=== PATIENT | female | born 1935 | race Caucasian/White ===

== ENCOUNTER → 2020-04-18 13:02 | Outpatient (BNVA) | payer MEDICARE, OTHER, SELFPAY | PROVIDERS: Visit Provider Nurse Practitioner Family | DX: Z20.828 Contact with and (suspected) exposure to other viral communicable diseases (principal) | CPT/HCPCS: 87635 ==

== ENCOUNTER → 2022-12-11 10:20 | Outpatient (BNVA) | payer MEDICARE, OTHER, SELFPAY | PROVIDERS: Referring Provider Nurse Practitioner Family; Visit Provider Podiatrist Foot & Ankle Surgery | DX: I73.9 Peripheral vascular disease, unspecified (principal); B35.1 Tinea unguium; L84 Corns and callosities; L90.9 Atrophic disorder of skin, unspecified; G62.9 Polyneuropathy, unspecified; M20.41 Other hammer toe(s) (acquired), right foot; M20.42 Other hammer toe(s) (acquired), left foot; E11.42 Type 2 diabetes mellitus with diabetic polyneuropathy; Z79.4 Long term (current) use of insulin | CPT/HCPCS: 11056; 11721; 99203 ==

== ENCOUNTER → 2023-02-26 10:40 | Outpatient (BNVA) | payer MEDICARE, OTHER, SELFPAY | PROVIDERS: Visit Provider Podiatrist Foot & Ankle Surgery | DX: B35.1 Tinea unguium (principal); L90.9 Atrophic disorder of skin, unspecified; I73.9 Peripheral vascular disease, unspecified; G62.9 Polyneuropathy, unspecified; M20.41 Other hammer toe(s) (acquired), right foot; M20.42 Other hammer toe(s) (acquired), left foot; L84 Corns and callosities; E11.42 Type 2 diabetes mellitus with diabetic polyneuropathy; Z79.4 Long term (current) use of insulin | CPT/HCPCS: 11056; 11721 ==

== ENCOUNTER → 2023-05-28 14:02 | Outpatient (BNVA) | payer MEDICARE, OTHER, SELFPAY | PROVIDERS: PCP Nurse Practitioner Family; Visit Provider Podiatrist Foot & Ankle Surgery | DX: B35.1 Tinea unguium (principal); L90.9 Atrophic disorder of skin, unspecified; I73.9 Peripheral vascular disease, unspecified; G62.9 Polyneuropathy, unspecified; M20.41 Other hammer toe(s) (acquired), right foot; M20.42 Other hammer toe(s) (acquired), left foot; L84 Corns and callosities; E11.42 Type 2 diabetes mellitus with diabetic polyneuropathy | CPT/HCPCS: 11721 ==

== ENCOUNTER → 2023-08-14 13:02 | Outpatient (BNVA) | payer MEDICARE, OTHER, SELFPAY | PROVIDERS: PCP Nurse Practitioner Family; Visit Provider Podiatrist Foot & Ankle Surgery | DX: M25.371 Other instability, right ankle (principal); E11.42 Type 2 diabetes mellitus with diabetic polyneuropathy; B35.1 Tinea unguium; L84 Corns and callosities; L90.9 Atrophic disorder of skin, unspecified; I73.9 Peripheral vascular disease, unspecified; G62.9 Polyneuropathy, unspecified; M20.41 Other hammer toe(s) (acquired), right foot; M20.42 Other hammer toe(s) (acquired), left foot; Z79.4 Long term (current) use of insulin | CPT/HCPCS: 11056; 11721; 73610; 99213 ==

== ENCOUNTER → 2023-10-16 11:08 | Outpatient (BNVA) | payer MEDICARE, OTHER, SELFPAY | PROVIDERS: PCP Nurse Practitioner Family; Visit Provider Podiatrist Foot & Ankle Surgery | DX: B35.1 Tinea unguium (principal); I73.9 Peripheral vascular disease, unspecified; G62.9 Polyneuropathy, unspecified; L84 Corns and callosities; E11.42 Type 2 diabetes mellitus with diabetic polyneuropathy; Z79.4 Long term (current) use of insulin | CPT/HCPCS: 11056; 11721 ==

== ENCOUNTER → 2024-01-08 10:10 | Outpatient (BNVA) | payer MEDICARE, OTHER, SELFPAY | PROVIDERS: PCP Nurse Practitioner Family; Visit Provider Podiatrist Foot & Ankle Surgery | DX: B35.1 Tinea unguium (principal); I73.9 Peripheral vascular disease, unspecified; G62.9 Polyneuropathy, unspecified; L84 Corns and callosities; E11.42 Type 2 diabetes mellitus with diabetic polyneuropathy | CPT/HCPCS: 11056; 11721 ==

== ENCOUNTER 2024-05-27 22:51 | Inpatient (IN) | payer MEDICARE, OTHER, MEDICAID, SELFPAY ==
[2024-05-27 22:55] VITALS: BP 123/67; PULSE 73; RESP 20; TEMP 36.9; O2SAT 98
--- NOTE | 2024-05-27 22:59 | XRR_ITS ---
PROCEDURE INFORMATION: Exam: XR Chest Exam date and time: 05/27/2024 11:01 PM Age: 88 years old Clinical indication: Shortness of breath; Prior surgery; Surgery date: 6+ months; Surgery type: Pacer; Additional info: Dyspnea, wheezing TECHNIQUE: Imaging protocol: Radiologic exam of the chest. Views: 1 view. COMPARISON: CR XR shoulder RT min 2V* [id number] 08/21/2018 5:53 PM FINDINGS: Tubes, catheters and devices: Left subclavian pacer with right atrial appendage and right ventricular leads. Lungs: Central pulmonary vascular congestion. Mild interstitial prominence. Patchy bibasilar opacities. Pleural spaces: Unremarkable. No pleural effusion. No pneumothorax. Heart/Mediastinum: Cardiomegaly. Vasculature: Atherosclerotic aortic calcifications. Bones/joints: Unremarkable. XR/XR chest 1V portable [id number] IMPRESSION: 1. Cardiomegaly with central pulmonary vascular congestion. Mild interstitial prominence may reflect mild pulmonary edema. 2. Mild bibasilar opacities could represent atelectasis versus infiltrate.
--- NOTE | 2024-05-27 23:00 | W.ED.SOB ---
HPI - SOB/Dyspnea General: Chief Complaint: Shortness of Breath/Dyspnea Stated Complaint: sob Time Seen by Provider: 05/27/24 22:58 History of Present Illness: HPI Narrative: Patient arrived to the ER via EMS from [facility]. EMS reports that son was concerned that the patient was not being taken care of and wanted her evaluated. Patient has no complaints at this time. She is alert and oriented x 3. Patient does have CHF, COPD oxygen dependent at 2 L per nasal cannula, A-fib, on warfarin, diltiazem, flecainide, furosemide, insulin-dependent diabetic, patient denies any complaints at this time. Related Data Home Medications ?Medication ?Instructions ?Recorded ?Confirmed amlodipine 5 mg tablet 5 mg PO DAILY 04/18/20 05/28/24 cholecalciferol (vitamin D3) 50 50 mcg PO DAILY 04/18/20 05/28/24 mcg (2,000 unit) capsule diltiazem HCl 120 mg 120 mg PO DAILY 04/18/20 05/28/24 capsule,extended release 24 hr epinephrine 0.3 mg/0.3 mL 0.3 mg IM Q10M PRN Allergic 04/18/20 05/28/24 injection, auto-injector Reaction furosemide 20 mg tablet 10 mg PO QAM 04/18/20 05/28/24 hydrocodone 7.5 mg-acetaminophen 1 tab PO Q6H PRN pain 04/18/20 05/28/24 325 mg tablet warfarin 2.5 mg tablet 2.5 mg PO DAILY 04/18/20 05/28/24 flecainide 100 mg tablet 100 mg PO BID 05/28/24 05/28/24 gabapentin 100 mg capsule 100 mg PO QID 05/28/24 05/28/24 linagliptin 5 mg tablet (Tradjenta) 5 mg PO DAILY 05/28/24 05/28/24 metoprolol succinate 100 mg 100 mg PO DAILY 05/28/24 05/28/24 tablet,extended release 24 hr omeprazole 20 mg capsule,delayed 20 mg PO BID 05/28/24 05/28/24 release Allergies Allergy/AdvReac Type Severity Reaction Status Date / Time Iodinated Contrast Media Allergy Severe hives Verified 05/27/24 23:00 Penicillins Allergy Severe anaphylaxis Verified 05/27/24 23:00 tolmetin (From Tolectin) Allergy Severe anaphylaxis Verified 05/27/24 23:00 acetaminophen (From Allergy Intermediate itching Verified 05/27/24 23:00 Darvocet-N) alendronate sodium (From Allergy Intermediate heartburn Verified 05/27/24 23:00 Fosamax) antioxidant multivitamin Allergy Intermediate n/v/d Verified 05/27/24 23:00 no.10 (From I-Caps) clonidine (From Catapres) Allergy Intermediate dizziness Verified 05/27/24 23:00 docosahexaenoic acid (From Allergy Intermediate n/v/d Verified 05/27/24 23:00 I-Caps) eicosapentaenoic acid (From Allergy Intermediate n/v/d Verified 05/27/24 23:00 I-Caps) lisinopril Allergy Intermediate rash Verified 05/27/24 23:00 lutein (From I-Caps) Allergy Intermediate n/v/d Verified 05/27/24 23:00 metformin (From Glucophage) Allergy Intermediate n/v/d Verified 05/27/24 23:00 morphine Allergy Intermediate rash Verified 05/27/24 23:00 omega-3 fatty acids (From Allergy Intermediate n/v/d Verified 05/27/24 23:00 I-Caps) propoxyphene (From Allergy Intermediate itching Verified 05/27/24 23:00 Darvocet-N) zeaxanthin (From I-Caps) Allergy Intermediate n/v/d Verified 05/27/24 23:00 NSAIDS (Non-Steroidal Allergy anaphylaxis Verified 05/27/24 23:00 Anti-Inflamma Review of Systems General: Reports: 10 or more systems reviewed and unremarkable except in HPI and below PFSH ED PFSH: Medical History Pacemaker Diabetes CHF (congestive heart failure) A-fib Status post ablation March 2024 at [facility], status post pacemaker PAD (peripheral artery disease) Right ankle instability Social History Smoking and tobacco/nicotine status: never used tobacco/nicotine Alcohol intake: never Substance/Drug Use: never Physical Exam Const: COMMON NORMALS: no acute distress, average body habitus, patient oriented x3, no limitations, healthy appearing, alert and well nourished HENMT: COMMON NORMALS: normocephalic, atraumatic, hearing grossly normal bilaterally, external ears normal, Normal external nose present, moist oral mucous membranes and oropharynx normal HEAD & SCALP: normocephalic and atraumatic NOSE: Normal external nose present EXTERNAL EAR: Yes external ears normal Eye: COMMON NORMALS: Equal, round and reactive pupils present, EOMs intact bilaterally, conjunctivae normal and no scleral icterus CONJUNCTIVA: Yes conjunctivae normal PUPIL: Yes Equal, round and reactive pupils present Neck/C-Spine: COMMON NORMALS: no JVD Chest: COMMONS NORMALS: normal inspection of the chest and normal palpation of entire chest wall Resp: COMMON NORMALS: normal respiratory effort, No retractions and No use of accessory muscles; negative for clear to auscultation bilaterally (Decreased breath sounds bilaterally occasional expiratory wheeze) AUSCULTATION: not clear to auscultation bilaterally (Decreased breath sounds bilaterally occasional expiratory wheeze) Cardio: COMMON NORMALS: no JVD, regular rate, regular rhythm, S1 normal heart sound present, S2 normal heart sound present, No gallops present (Cardio), No clicks present (Cardio) and No murmurs present (Cardio) RATE: regular rate RHYTHM: regular rhythm HEART SOUNDS: S1 normal heart sound present and S2 normal heart sound present GI: COMMON NORMALS: Normal to inspection, nondistended, normoactive bowel sounds present, Soft to palpation, non-tender, No hepatosplenomegaly present and no masses PALPATION: Yes Soft to palpation and Yes No hepatosplenomegaly present Extremity: NARRATIVE EXTREMITY EXAM: 1+ pitting edema pretibial bilaterally lower extremities Neuro: COMMON NORMALS: patient oriented x3 SENSORIUM/ORIENTATION: Yes alert Course Vital Signs: Vital signs: Vital Signs Temperature 97.6 F 05/28/24 19:30 Pulse Rate 69 05/28/24 19:30 Respiratory Rate 16 05/28/24 19:30 Blood Pressure 91/56 05/28/24 19:30 Pulse Oximetry 96 05/28/24 19:30 Oxygen Delivery Me thod Nasal Cannula 05/28/24 19:30 Oxygen Flow Rate 2 05/28/24 19:30 MDM - SOB/Dyspnea Medical Decision Making I have no previous records on the patient. Patient's chest x-ray showed pulmonary vascular congestion which may reflect pulmonary edema atelectasis versus infiltrate, patient's white count was 12.0, INR 6.79, potassium 5.3, BUN/creatinine 42/2.7, lactic acid 2.5, AST 451, ALT 294, alkaline phosphatase 118, total bilirubin 1.1, proBNP 36,000, CT of the chest abdomen pelvis showed bilateral pulmonary effusions cardiomegaly and soft tissue edema is, all these results was discussed with Dr. Mandujano who will place the patient inpatient for further evaluation treatment. Medical Records I reviewed the patient's medical records. Lab Data I reviewed the patient's lab results. 05/28/24 12:14 05/28/24 14:33 Labs/Radiology: Radiology Impressions Chest X-Ray 05/27/24 22:59 IMPRESSION: 1. Cardiomegaly with central pulmonary vascular congestion. Mild interstitial prominence may reflect mild pulmonary edema. 2. Mild bibasilar opacities could represent atelectasis versus infiltrate. Chest/Abdomen/Pelvis CT 05/28/24 00:09 IMPRESSION: Cardiomegaly. Moderate right and small left effusion. IMPRESSION: Cardiomegaly. Effusions and soft tissue edema, suggesting some degree of cardiac failure. Additional chronic findings as above. COMMENTS: Consistent with the [employer]'s Incidental Findings Committee white paper (J Am Christopher Radiol 2017): For any incidental adrenal lesion greater than or equal to 1 cm but less than or equal to 4 cm classified in this report as benign, likely benign, or containing fat (including classification as an adenoma or myelolipoma), no follow-up imaging is recommended per consensus recommendations based on imaging criteria. Further lab evaluation could be pursued if warranted based on clinical findings. Head CT 05/28/24 01:13 IMPRESSION: Advanced chronic ischemic change and atrophy. No acute intracranial abnormality. Laboratory Results WBC 12.01 10^3/uL (3.29-11.43) H 05/27/24 23:14 RBC 4.54 10^6/uL (3.85-5.65) 05/27/24 23:14 Hgb 12.30 g/dL (11.27-16.99) 05/27/24 23:14 Hct 39.8 % (36-47) 05/27/24 23:14 MCV 87.7 fl (85-98) 05/27/24 23:14 MCH 27.1 pg (27-33) 05/27/24 23:14 MCHC 30.9 g/dL (30-55) 05/27/24 23:14 RDW 18.6 % (12.1-15.1) H 05/27/24 23:14 Plt Count 284 10^3/cmm (157-399) 05/27/24 23:14 MPV 9.7 fL (7.4-10.4) 05/27/24 23:14 Neut % (Auto) 84.3 % 05/27/24 23:14 Lymph % (Auto) 7.0 % 05/27/24 23:14 [place] % (Auto) 7.8 % 05/27/24 23:14 Eos % (Auto) 0.1 % 05/27/24 23:14 Baso % (Auto) 0.2 % 05/27/24 23:14 Neut # (Auto) 10.12 10^3/uL (1.8-7.7) H 05/27/24 23:14 Lymph # (Auto) 0.8 10^3/uL (0.8-4.8) 05/27/24 23:14 [place] # (Auto) 0.9 10^3/uL (0.2-0.9) 05/27/24 23:14 Eos # (Auto) 0.0 10^3/uL (0.0-0.8) 05/27/24 23:14 Baso # (Auto) 0.0 10^3/uL (0.0-0.1) 05/27/24 23:14 Nucleated RBC % (auto) 0 % 05/27/24 23:14 Nucleated RBCs # 0.0 /100WBC 05/27/24 23:14 PT 62.10 SECONDS (12.1-14.9) H 05/27/24 23:14 INR 6.79 (0.8-1.2) H* 05/27/24 23:14 Sodium 134 mmol/L (136-145) L 05/27/24 23:14 Potassium 5.3 mmol/L (3.5-5.1) H 05/27/24 23:14 Chloride 96 mmol/L (98-107) L 05/27/24 23:14 Carbon Dioxide 22 mmol/L (22-29) 05/27/24 23:14 Anion Gap 21.3 (5-19) H 05/27/24 23:14 BUN 42 mg/dL (8-23) H 05/27/24 23:14 Creatinine 2.7 mg/dL (0.5-0.9) H 05/27/24 23:14 GFR Calculation Not Reportable 05/27/24 23:14 Glucose 220 mg/dL (65-115) H 05/27/24 23:14 Calculated Osmolality 295 mOsm/kg (285-295) 05/27/24 23:14 Lactic Acid 2.5 mmol/L (0.5-2.2) H 05/27/24 23:14 Calcium 8.8 mg/dL (8.5-10.5) 05/27/24 23:14 Magnesium 2.3 mg/dL (1.7-2.3) 05/27/24 23:14 Total Bilirubin 1.1 mg/dL (0.15-1.2) 05/27/24 23:14 AST 451 U/L (0-32) H 05/27/24 23:14 ALT 294 U/L (0-33) H 05/27/24 23:14 Alkaline Phosphatase 118 U/L (35-105) H 05/27/24 23:14 NT-Pro-B Natriuret Pep 46575 pg/mL (0-450) H 05/27/24 23:14 Total Protein 7.1 g/dL (6.6-8.7) 05/27/24 23:14 Albumin 3.5 g/dL (3.5-5.2) 05/27/24 23:14 Globulin 3.6 g/dL (1.3-4.6) 05/27/24 23:14 Procalcitonin 0.20 ng/mL (0-0.5) 05/27/24 23:14 Urine Color Dark yellow (Yellow) A 05/28/24 00:38 Urine Appearance Clear (CLEAR) 05/28/24 00:38 Urine pH 5.0 (5-7) 05/28/24 00:38 Ur Specific [place] 1.020 (1.005-1.030) 05/28/24 00:38 Urine Protein 2+ (Negative) A 05/28/24 00:38 Urine Glucose (UA) Negative (Normal) 05/28/24 00:38 Urine Ketones Trace (Negative) 05/28/24 00:38 Urine Blood Negative (Negative) 05/28/24 00:38 Urine Nitrate Negative (Negative) 05/28/24 00:38 Urine Bilirubin 1+ (Negative) H 05/28/24 00:38 Urine Urobilinogen 1.0 mg/dL (Negative) 05/28/24 00:38 Ur Leukocyte Esterase Trace (Negative) A 05/28/24 00:38 Urine RBC None /hpf (0-2) 05/28/24 00:38 Urine WBC 0-4 /hpf (0-5) H 05/28/24 00:38 Ur Squamous Epith Cells 0-4 /hpf (0-5) H 05/28/24 00:38 Amorphous Sediment Not Reportable 05/28/24 00:38 Urine Bacteria Trace /hpf (NONE) 05/28/24 00:38 Hyaline Casts 5-10 /lpf H 05/28/24 00:38 Urine Mucus 2+ /hpf 05/28/24 00:38 Influenza A (PCR) Negative (Negative) 05/28/24 00:12 Influenza Type B (PCR) Negative (Negative) 05/28/24 00:12 RSV (PCR) Negative (Negative) 05/28/24 00:12 SARS-CoV-2 (PCR) Negative (Negative) 05/28/24 00:12 All radiology interpretation(s) finalized by discharge Discharge Plan Discharge Patient Disposition: Admitted As Inpatient Admit Provider: Radha Mandujano Clinical Impression: YOLANDA (acute kidney injury), CHF (congestive heart failure), Coagulopathy, Abnormal transaminases, Bilateral pleural effusion Condition: Stable Coding Level of Care Code ED Marketing Automation Specialist for Lakhwinder Shay
[2024-05-27 23:34] LABS: Basophils % 0.2 %; Eosinophils % 0.1 %; Hematocrit 39.8 % (36-47); Lymphocytes # 0.8 10^3/uL (0.8-4.8); Mean Corpuscular HGB Conc 30.9 g/dL (30-55); Mean Corpuscular Hemoglobin 27.1 pg (27-33); Mean Corpuscular Volume 87.7 fl (85-98); Mean Platelet Volume 9.7 fL (7.4-10.4); Monocytes # 0.9 10^3/uL (0.2-0.9); Monocytes % 7.8 %; Neutrophils # 10.12 10^3/uL (1.8-7.7); Neutrophils % 84.3 %; Nucleated Red Blood Cells % 0 %; Platelet Count 284 10^3/cmm (157-399); Red Blood Count 4.54 10^6/uL (3.85-5.65); Red Cell Distribution Width 18.6 % (12.1-15.1); White Blood Count 12.01 10^3/uL (3.29-11.43)
[2024-05-27 23:52] LABS: Alanine Aminotransferase 294 U/L (0-33); Albumin Level 3.5 g/dL (3.5-5.2); Alkaline Phosphatase 118 U/L (35-105); Anion Gap 21.3 (5-19); Aspartate Amino Transferase 451 U/L (0-32); Blood Urea Nitrogen 42 mg/dL (8-23); Calcium 8.8 mg/dL (8.5-10.5); Carbon Dioxide 22 mmol/L (22-29); Chloride 96 mmol/L (98-107); Globulin 3.6 g/dL (1.3-4.6); Glucose 220 mg/dL (65-115); Magnesium 2.3 mg/dL (1.7-2.3); Osmolality Calculated 295 mOsm/kg (285-295); Potassium 5.3 mmol/L (3.5-5.1); Sodium 134 mmol/L (136-145); Total Bilirubin 1.1 mg/dL (0.15-1.2); Total Protein 7.1 g/dL (6.6-8.7)
[2024-05-27 23:54] LABS: INR 6.79 (0.8-1.2)
[2024-05-28] VITALS (12 sets, daily range): BP systolic 85–136; BP diastolic 54–79; PULSE 69–105; RESP 16–22; TEMP 36.3–36.7; O2SAT 92–98
[2024-05-28 00:01] LABS: Lactic Sepsis W/Reflex 2.5 mmol/L (0.5-2.2)
--- NOTE | 2024-05-28 00:06 | PC.NURSE ---
PT IS ALWAYS ON 2L OF O2.
--- NOTE | 2024-05-28 00:09 | CTR_ITS ---
PROCEDURE INFORMATION: Exam: CT Chest Without Contrast; Diagnostic Exam date and time: 05/28/2024 12:18 AM Age: 88 years old Clinical indication: Other: Elevated lfts, acute renal failure, atelectasis versus infil TECHNIQUE: Imaging protocol: Diagnostic computed tomography of the chest without contrast. Radiation optimization: All CT scans at this facility use at least one of these dose optimization techniques: automated exposure control; mA and/or kV adjustment per patient size (includes targeted exams where dose is matched to clinical indication); or iterative reconstruction. COMPARISON: CR (CHEST, ) 05/27/2024 11:01 PM RADIATION DOSE METRICS: Total DLP (mGy-cm): 910.79 FINDINGS: Tubes, catheters and devices: Pacemaker. Lungs: Unremarkable. No consolidation. No masses. Pleural spaces: Unremarkable. No pneumothorax. No pleural effusion. Heart: Cardiomegaly. Lymph nodes: Unremarkable. No enlarged lymph nodes. Vasculature: Unremarkable. No aortic aneurysm. Bones/joints: Unremarkable. No acute fracture. Soft tissues: Unremarkable. Other findings: Moderate right and small left effusion. PROCEDURE INFORMATION: Exam: CT Abdomen And Pelvis Without Contrast Exam date and time: 05/28/2024 12:18 AM Age: 88 years old Clinical indication: Other: Elevated lfts, acute renal failure, atelectasis versus infil TECHNIQUE: Imaging protocol: Computed tomography of the abdomen and pelvis without contrast. Radiation optimization: All CT scans at this facility use at least one of these dose optimization techniques: automated exposure control; mA and/or kV adjustment per patient size (includes targeted exams where dose is matched to clinical indication); or iterative reconstruction. COMPARISON: CR (CHEST, ) 05/27/2024 11:01 PM RADIATION DOSE METRICS: Total DLP (mGy-cm): 910.79 FINDINGS: Liver: Normal. No mass. Gallbladder and biliary ducts: Cholecystectomy. Pancreas: Normal. No ductal dilation. Spleen: Normal. No splenomegaly. Adrenal glands: 24 mm left adrenal mass. Fullness right adrenal. Kidneys and ureters: Normal. No hydronephrosis. Stomach and bowel: Diverticulosis colon. Appendix: No evidence of appendicitis. Vasculature: Unremarkable. No abdominal aortic aneurysm. Lymph nodes: Unremarkable. No enlarged lymph nodes. Urinary bladder: Unremarkable as visualized. Reproductive: Unremarkable as visualized. Extraperitoneal space: Presacral fluid/edema. Bones/joints: Postsurgical and degenerative changes spine. Soft tissues: Ventral hernia mesh. Diffuse edema within the subcutaneous fat/soft tissues. CT/[place] [id number] IMPRESSION: Cardiomegaly. Moderate right and small left effusion. IMPRESSION: Cardiomegaly. Effusions and soft tissue edema, suggesting some degree of cardiac failure. Additional chronic findings as above. COMMENTS: Consistent with the [employer]'s Incidental Findings Committee white paper (J Am Christopher Radiol 2017): For any incidental adrenal lesion greater than or equal to 1 cm but less than or equal to 4 cm classified in this report as benign, likely benign, or containing fat (including classification as an adenoma or myelolipoma), no follow-up imaging is recommended per consensus recommendations based on imaging criteria. Further lab evaluation could be pursued if warranted based on clinical findings.
[2024-05-28 00:22] LABS: NT Pro B Type Natriuretic Pept 36138 pg/mL (0-450)
--- NOTE | 2024-05-28 00:39 | PM.HP ---
Providers/Chief Complaint Primary Care Provider: Sheri Lynch, WALLACE Chief Complaint: sob History of Present Illness Vanessa Gunn is a 88 year old female with history of insulin-dependent diabetes, CHF, A-fib, chronic anticoagulation, in March had ablation done [facility], has had 2 admissions for CHF exacerbation and last 1 month, presented from rehab with chief complaint of generalized weakness, confusion and worsening of lower extremity edema. Son is stating that he is concerned that she is not getting good care because nursing staff was confused whether to give diuretics on as-needed basis or daily. Patient has gained weight, her lower extremities are more swollen. She is very lethargic and fatigued. Has not been eating very well. She is an picky eater secondary to alpha gal. No recent fever nausea vomiting diarrhea, patient is able to tell me her date of however extreme lethargic and fatigued falling asleep during conversation, she was complaining of pain in her right knee which was stuck in the bed railing, she denied signs of UTI. I am requesting records from [facility] Workup in the ER revealed abnormal transaminases, coagulopathy, no active bleed, YOLANDA, INR 6 CT chest abdomen pelvis without contrast is pending Chest x-ray consistent with pulm edema At baseline patient uses 2 L of oxygen at the rehab, currently she is on 3 L, hemodynamically stable, At baseline, she is conversive, has memory impairment, able to walk with a walker, able to carry decent conversation with her son, this has changed in last few weeks, as per the son she is going downhill since ablation Review of Systems General: Reports: ROS unobtainable due to medical condition and ROS unobtainable due to mental status Medications/Allergies Home Medications ?Medication ?Instructions ?Recorded ?Confirmed ?Last Taken ?Type amlodipine 5 mg tablet 5 mg PO DAILY 04/18/20 01/08/24 Unknown History bisacodyl 5 mg tablet (Correctol) 5 mg PO DAILY PRN constipation 04/18/20 01/08/24 Unknown History cholecalciferol (vitamin D3) 50 50 mcg PO DAILY 04/18/20 01/08/24 Unknown History mcg (2,000 unit) capsule diltiazem HCl 120 mg 120 mg PO DAILY 04/18/20 01/08/24 Unknown History capsule,extended release 24 hr epinephrine 0.3 mg/0.3 mL 0.3 mg IM Q10M PRN 04/18/20 01/08/24 Unknown History injection, auto-injector flecainide 50 mg tablet 50 mg PO Q12H 04/18/20 01/08/24 Unknown History furosemide 20 mg tablet 10 mg PO QAM 04/18/20 01/08/24 Unknown History gabapentin 300 mg capsule 300 mg PO DAILY 04/18/20 01/08/24 Unknown History hydrocodone 7.5 mg-acetaminophen 1 tab PO Q6H PRN pain 04/18/20 01/08/24 Unknown History 325 mg tablet insulin detemir U-100 100 unit/mL 10 unit SUBCUT DAILY 04/18/20 01/08/24 Unknown History (3 mL) subcutaneous pen (Levemir FlexTouch U-100 Insulin) oxymetazoline 0.05 % nasal mist 2 spray intranasal Q12H PRN 04/18/20 01/08/24 Unknown History (Afrin (oxymetazoline)) warfarin 2.5 mg tablet 2.5 mg PO .sunday04/18/20 01/08/24 Unknown History warfarin 2.5 mg tablet 2.5 mg PO DAILY 04/18/20 01/08/24 Unknown History bailey balance brace #1 ea 08/14/23 01/08/24 Unknown Rx Allergies Allergy/AdvReac Type Severity Reaction Status Date / Time Iodinated Contrast Media Allergy Severe hives Verified 05/27/24 23:00 Penicillins Allergy Severe anaphylaxis Verified 05/27/24 23:00 tolmetin (From Tolectin) Allergy Severe anaphylaxis Verified 05/27/24 23:00 acetaminophen (From Allergy Intermediate itching Verified 05/27/24 23:00 Darvocet-N) alendronate sodium (From Allergy Intermediate heartburn Verified 05/27/24 23:00 Fosamax) antioxidant multivitamin Allergy Intermediate n/v/d Verified 05/27/24 23:00 no.10 (From I-Caps) clonidine (From Catapres) Allergy Intermediate dizziness Verified 05/27/24 23:00 docosahexaenoic acid (From Allergy Intermediate n/v/d Verified 05/27/24 23:00 I-Caps) eicosapentaenoic acid (From Allergy Intermediate n/v/d Verified 05/27/24 23:00 I-Caps) lisinopril Allergy Intermediate rash Verified 05/27/24 23:00 lutein (From I-Caps) Allergy Intermediate n/v/d Verified 05/27/24 23:00 metformin (From Glucophage) Allergy Intermediate n/v/d Verified 05/27/24 23:00 morphine Allergy Intermediate rash Verified 05/27/24 23:00 omega-3 fatty acids (From Allergy Intermediate n/v/d Verified 05/27/24 23:00 I-Caps) propoxyphene (From Allergy Intermediate itching Verified 05/27/24 23:00 Darvocet-N) zeaxanthin (From I-Caps) Allergy Intermediate n/v/d Verified 05/27/24 23:00 NSAIDS (Non-Steroidal Allergy anaphylaxis Verified 05/27/24 23:00 Anti-Inflamma PFSH Acute PFSH: Medical History Pacemaker Diabetes CHF (congestive heart failure) A-fib Status post ablation March 2024 at [facility], status post pacemaker PAD (peripheral artery disease) Right ankle instability Social History Smoking and tobacco/nicotine status: never used tobacco/nicotine Alcohol intake: never Substance/Drug Use: never Vitals/I&O/Wt Last Vital Signs Temp 98.4 F 05/27/24 22:55 Pulse 73 05/28/24 00:02 Resp 16 05/28/24 00:02 BP 133/77 05/28/24 00:02 Pulse Ox 98 05/28/24 00:02 O2 Del Method Nasal Cannula 05/28/24 00:02 O2 Flow Rate 3 05/28/24 00:02 05/27/24 05/27/24 05/28/24 14:59 22:59 06:59 Intake Total 0 / 0 Balance 0 / 0 Physical Exam Narrative: Patient is lethargic and fatigue Oriented to herself Able to tell me her date of S1, S2 Variable heart rate around 70s Hemodynamically stable Currently on 3 L Bilateral breath sounds with crackles and rhonchi Abdomen soft Lower extremity 2+ edema extending all the way up to her thighs Son at the bedside Patient has positive asterixis Extremely weak and lethargic No facial droop, I do not appreciate any focal deficit She is able to move her extremities Data 05/27/24 23:14 05/27/24 23:14 A&P Assessment and plan (1) CHF (congestive heart failure): (2) A-fib: (3) Coagulopathy: (4) Abnormal transaminases: (5) YOLANDA (acute kidney injury): (6) Delirium: (7) Metabolic encephalopathy: Plan Hypoactive delirium with metabolic encephalopathy Multifactorial Positive asterixis Not been able to eat much Coagulopathy Abnormal transaminases Rule out UTI UA report is pending Request CT head without contrast No fever No active hemodynamic instability Check TSH, B12 Procalcitonin unremarkable CHF exacerbation EF is unknown Request records from [facility] Patient clinically has anasarca presentation Start aggressive diuresis Place Fitzpatrick catheter for accurate urine output measurement YOLANDA: Do not have previous creatinine to compare her baseline Place Fitzpatrick catheter to rule out postrenal obstruction as per the family she was retaining urine at the rehab A-fib: Status post ablation Jose 2024 at [facility]: Status post pacemaker: Takes flecainide, Coumadin She has significant coagulopathy Hold flecainide, flecainide can also cause abnormal transaminases Hold Coumadin Supratherapeutic INR: No active bleed Hemoglobin stable Blood pressure stable Hold Coumadin for now No active sign of bleed Chronic hypoxia uses 2 L at baseline currently on 3 L Active pulm edema evident on chest x-ray Start IV diuresis Decreased p.o. intake with delirium Third admission in the hospital related to CHF: Physically deconditioned Patient will need likely long-term halfway placement Mild hyponatremia with active CHF: She seems to be gradually declining: Depending on her p.o. intake, mentation and physical activity further plan will be made after reviewing her progress Goals of care discussed with the family at the bedside: She has DNR/DNI paperwork with the family Cardiac consistent carb diet Insulin sliding scale I will decrease the low-dose of Lantus to 8 units instead of 10 secondary to worsening of creatinine and decreased p.o. intake As per the family no recent hypoglycemic event PDMP PDMP Reviewed: Not Reviewed Attestations Medical Necessity Statement*: More than 2 midnights anticipated for management of failure to thrive, CHF exacerbation, YOLANDA, coagulopathy Coding Level of Care Code Acute Code for [facility] Fwd Diagnoses CHF (congestive heart failure) I50.9 A-fib I48.91 Coagulopathy D68.9 Abnormal transaminases R74.8 YOLANDA (acute kidney injury) N17.9 Delirium R41.0 Metabolic encephalopathy G93.41
--- NOTE | 2024-05-28 00:43 | USCV_ITS ---
Vanessa Gunn Age: 88 Gender: F : 1935 Exam Date: 05/28/2024 03:17 Ordering Phys: Radha Mandujano MD Technologist: [place] Exam Location: [facility] Indication: weakness, confusion, IDDM, history of CHF, Atrial fibrillation, BLE edema. BP: 133 / 77 HR: 79 Rhythm: Atrial fibrillation Technical Quality: Adequate MEASUREMENTS (Male / Female) Normal Values 2D ECHO LV Diastolic Diameter PLAX 3.9 cm 4.2 - 5.9 / 3.9 - 5.3 cm IVS Diastolic Thickness 1.6 cm 0.6 - 1.0 / 0.6 - 0.9 cm IVS Systolic Thickness 1.8 cm LVPW Diastolic Thickness 1.2 cm 0.6 - 1.0 / 0.6 - 0.9 cm LVPW Systolic Thickness 1.7 cm LVOT Diameter 2.0 cm LV Ejection Fraction 2D Teich 39.4 % LV Ejection Fraction MOD 4C 22.2 % LV Ejection Fraction MOD 2C 42.8 % LV Ejection Fraction 2C AL 39.4 % LA Diameter 4.8 cm Aorta at Sinotubular Diameter 2.5 cm IVC Diameter 2.3 cm M-MODE LA Ao Ratio MM 1.9 AV Cusp Separation MM 1.6 cm DOPPLER AV Peak Velocity 107.0 cm/s LVOT Peak Velocity 45.0 cm/s AV Area Cont Eq vti 1.6 cm squared AV Area Cont Eq pk 1.3 cm squared MV Peak Velocity 86.0 cm/s MV Area PHT 4.9 cm squared Mitral E to A Ratio 819.0 TV Peak Velocity 291.7 cm/s TR Peak Velocity 313.0 cm/s TR Peak Gradient 39.2 mmHg TV Peak E Velocity 71.0 cm/s PV Peak Velocity 60.0 cm/s FINDINGS Left Ventricle Moderately increased left ventricular cavity size. Severely decreased left ventricular systolic function. Left ventricular ejection fraction is estimated at 35 %. Mid to distal anterioor, septal amd apical wall akinesis suggestive of ischemic heart disease .Grade III/IV diastolic dysfunction (restrictive filling pattern), severely elevated filling pressures. Right Ventricle The right ventricle is normal in size and function. Right Atrium Severely increased right atrial size. Left Atrium Moderately increased left atrial size. Mitral Valve Mildly thickened mitral valve. No mitral valve stenosis. Mild mitral valve regurgitation. Aortic Valve Mild aortic valve calcification. No aortic valve stenosis. Trace aortic valve regurgitation. Tricuspid Valve Severe tricuspid valve regurgitation. Pulmonic Valve Mild pulmonary valve regurgitation. Pericardium Normal pericardium without effusion. Aorta Normal ascending aorta dimension. IVC The inferior vena cava appears normal. CONCLUSIONS Moderately increased left ventricular cavity size. Severely decreased left ventricular systolic function. Left ventricular ejection fraction is estimated at 35 %. Mid to distal anterioor, septal amd apical wall akinesis suggestive of ischemic heart disease .Grade III/IV diastolic dysfunction (restrictive filling pattern), severely elevated filling pressures. Severely increased right atrial size. Moderately increased left atrial size. Severe tricuspid valve regurgitation. There is no pericardial effusion. Right atrial pressure is around 5 mm of mercury. Radha Olivares MD (Electronically Signed) Final Date: 28 May 2024 12:26 S
[2024-05-28 00:44] LABS: Bilirubin Urine 1+ (Negative); Blood Urine Negative (Negative); Glucose Urine UA Negative (Normal); Ketones Urine Trace (Negative); Leukocyte Esterase Urine Trace (Negative); Nitrate Urine Negative (Negative); Protein Urine 2+ (Negative); Urine Appearance Clear (CLEAR); Urine Color Dark Yellow (Yellow)
[2024-05-28 01:05] LABS: Influenza A NEGATIVE (Negative); Influenza B NEGATIVE (Negative); Respiratory Syncytial Virus Ce NEGATIVE (Negative); SARS-CoV-2 PCR NEGATIVE (Negative)
--- NOTE | 2024-05-28 01:13 | CTR_ITS ---
PROCEDURE INFORMATION: Exam: CT Head Without Contrast Exam date and time: 05/28/2024 1:36 AM Age: 88 years old Clinical indication: Altered mental status/memory loss; Additional info: Patient is confused TECHNIQUE: Imaging protocol: Computed tomography of the head without contrast. Radiation optimization: All CT scans at this facility use at least one of these dose optimization techniques: automated exposure control; mA and/or kV adjustment per patient size (includes targeted exams where dose is matched to clinical indication); or iterative reconstruction. COMPARISON: CT head wo con* [id number] 08/21/2018 6:22 PM RADIATION DOSE METRICS: Total DLP (mGy-cm): 1139.94 FINDINGS: Brain: Advanced chronic ischemic change and atrophy. Cerebral ventricles: No ventriculomegaly. Paranasal sinuses: Visualized sinuses are unremarkable. No fluid levels. Mastoid air cells: Visualized mastoid air cells are well aerated. Bones: Unremarkable. No acute fracture. Soft tissues: Unremarkable. CT/CT head wo con* [id number] IMPRESSION: Advanced chronic ischemic change and atrophy. No acute intracranial abnormality.
[2024-05-28 01:17] LABS: Add Urine Microscopic? YES; Squamous Epithelial Cell Urine 0-4 /hpf (0-5); UA Manual Slide Review YES; WBC Urine 0-4 /hpf (0-5)
[2024-05-28 01:18] LABS: Add Urine Culture? No; Bacteria Urine TRACE /hpf; Mucus Urine 2+ /hpf
[2024-05-28 01:35] LABS: Reflex Lactate Order REFLEX LACTIC ORDERD
[2024-05-28] MEDS: FUROsemide 10 mg/mL SDV 10mL 40 MG IVP ×2 (02:00→12:16)
[2024-05-28 02:31] LABS: Basophils % 0.1 %; Hematocrit 39.9 % (36-47); Lymphocytes % 7.9 %; Mean Corpuscular HGB Conc 30.3 g/dL (30-55); Mean Corpuscular Hemoglobin 26.9 pg (27-33); Mean Corpuscular Volume 88.9 fl (85-98); Mean Platelet Volume 10.3 fL (7.4-10.4); Neutrophils % 83.3 %; Nucleated Red Blood Cells % 0 %; Platelet Count 251 10^3/cmm (157-399); Red Blood Count 4.49 10^6/uL (3.85-5.65); Red Cell Distribution Width 18.5 % (12.1-15.1); White Blood Count 12.85 10^3/uL (3.29-11.43)
[2024-05-28 02:55] LABS: INR 7.66 (0.8-1.2)
[2024-05-28 03:02] LABS: C Reactive Protein 62.5 mg/L (0.0-4.9); Phosphorus 4.4 mg/dL (2.5-4.5)
[2024-05-28 03:03] LABS: Lactic Acid level (Lactate) 2.5 mmol/L (0.5-2.2)
[2024-05-28 03:09] LABS: Ammonia 24 umol/L (11-51)
[2024-05-28 03:20] LABS: Thyroid Stimulating Hormone 2.71 uIU/mL (0.27-4.20); Vitamin B12 1211 pg/mL (232-1245)
[2024-05-28 03:22] LABS: Estmated Average Glucose 143; Hemoglobin A1C 6.6 % (4.0-6.0)
[2024-05-28] MEDS: dilTIAZem ER (24HR) 120 mg Capsule PO (08:41)
[2024-05-28] MEDS: insulin glargine 100 units/1 mL 8 UNIT SUBCUT (08:41)
[2024-05-28] MEDS: sennosides-docusate Tablet 1 TAB PO (08:41)
[2024-05-28 09:11] LABS: Glucose Point of Care 212 mg/dL (70-110)
[2024-05-28 09:11] LABS: Glucose Point of Care 174 mg/dL (70-110)
[2024-05-28] MEDS: ciprofloxacin 400 MG/200 ML PREMIX 200 MG IV ×2 (09:54→21:42)
[2024-05-28 10:42] LABS: Procalcitonin 0.25 ng/mL (0-0.5)
[2024-05-28 11:24] LABS: Glucose Point of Care 219 mg/dL (70-110)
[2024-05-28] MEDS: insulin lispro 100 unit/1 mL SUBCUT ×2 (12:15→21:43)
--- NOTE | 2024-05-28 12:30 | PC.NURSE ---
This nurse gave an update to patients son, Adi, via phone at 1230.
[2024-05-28 12:41] LABS: Basophils % 0.2 %; Eosinophils % 0.1 %; Hematocrit 34.1 % (36-47); Lymphocytes # 0.9 10^3/uL (0.8-4.8); Lymphocytes % 9.6 %; Mean Corpuscular HGB Conc 32.8 g/dL (30-55); Mean Corpuscular Hemoglobin 28.1 pg (27-33); Mean Corpuscular Volume 85.7 fl (85-98); Mean Platelet Volume 11.1 fL (7.4-10.4); Monocytes # 0.7 10^3/uL (0.2-0.9); Monocytes % 7.8 %; Neutrophils # 7.71 10^3/uL (1.8-7.7); Neutrophils % 81.9 %; Nucleated Red Blood Cells % 0.2 %; Platelet Count 242 10^3/cmm (157-399); Red Blood Count 3.98 10^6/uL (3.85-5.65); Red Cell Distribution Width 18.4 % (12.1-15.1); White Blood Count 9.41 10^3/uL (3.29-11.43)
--- NOTE | 2024-05-28 13:32 | PM.PN ---
Subjective Subjective: Patient was seen this morning, she denies any fevers, no chills, no cough, no lightheadedness, no dizziness, she is alert to person, not to place, not to time she can follow commands, complains of shortness of breath Vitals/I&O/Wt Last Vital Signs Temp 98.0 F 05/28/24 11:40 Pulse 69 05/28/24 11:40 Resp 18 05/28/24 11:40 BP 97/63 05/28/24 11:40 Pulse Ox 96 05/28/24 11:40 O2 Del Method Nasal Cannula 05/28/24 11:40 O2 Flow Rate 2 05/28/24 08:39 05/27/24 05/28/24 05/28/24 22:59 06:59 14:59 Intake Total 0 / 0 0 / 0 440 / 440 Balance 0 / 0 0 / 0 440 / 440 Weight last 48 hrs Weight 87.997 kg Physical Exam Const: COMMON NORMALS: no acute distress Resp: COMMON NORMALS: normal respiratory effort, No retractions and No use of accessory muscles AUSCULTATION: crackles and wheezes Cardio: COMMON NORMALS: regular rate, regular rhythm, S1 normal heart sound present and S2 normal heart sound present RATE: regular rate RHYTHM: regular rhythm HEART SOUNDS: S1 normal heart sound present and S2 normal heart sound present GI: COMMON NORMALS: Normal to inspection, nondistended, normoactive bowel sounds present and non-tender Extremity: COMMON NORMALS: no pedal edema Psych: COMMON NORMALS: mental status grossly normal Urinary Catheter Management: Fitzpatrick: Cath Placed During This Visit: yes Reason for Continuing Indwelling Catheter: Acute Urinary Retention or Obstruction Urinary Catheter Date of Insertion: 05/28/24 Urinary Catheter Time of Insertion: 02:02 Data 05/28/24 12:14 05/27/24 23:14 A&P Assessment and plan (1) CHF (congestive heart failure): Qualifiers: Heart failure chronicity: unspecified Heart failure type: unspecified Qualified Code(s): I50.9 - Heart failure, unspecified (2) A-fib: (3) Coagulopathy: (4) Abnormal transaminases: (5) YOLANDA (acute kidney injury): (6) Delirium: (7) Metabolic encephalopathy: (8) UTI (urinary tract infection): Plan Acute encephalopathy, metabolic Multifactorial Possible UTI Coagulopathy Abnormal transaminases Request CT head without contrast no acute findings No fever, no nuchal rigidity No active hemodynamic instability Check TSH, B12 within normal limits Procalcitonin within normal limits, CRP 60.5 Ammonia 24 UTI, ciprofloxacin Acute hypoxic respiratory failure -CT chest showing cardiomegaly, effusions moderate right and small left, soft tissue edema -Does use 2 L at baseline -Secondary to CHF exacerbation -IV diuresis as below CHF exacerbation Request records from [facility] Patient clinically has anasarca presentation Lasix [address] Fitzpatrick catheter for accurate urine output measurement YOLANDA: -Monitor urine output -Monitor creatinine, monitor potassium Transaminitis -Potentially associate with flecainide - CT abdomen no acute findings A-fib: Status post ablation March 2024 at [facility] - Status post pacemaker -Takes flecainide, Coumadin, currently on hold Hold flecainide, flecainide can also cause abnormal transaminases Hold Coumadin Supratherapeutic INR: No active bleed Monitor hemoglobin Blood pressure stable Hold Coumadin No active sign of bleed Recheck INR this afternoon Type 2 diabetes mellitus, low-dose sliding scale Physical deconditioning, Physical deconditioning, protein calorie malnutrition Nutrition, dysphagia level 4 diet, mildly thickened, aspiration precautions, consult speech therapy DNR/DNI Supratherapeutic INR Dysphagia level 4 diet Patient's INR is 10.7, will give her 1 dose of vitamin K recheck INR this evening, monitor for signs of bleeding, continue IV antibiotics, PDMP PDMP Reviewed: Not Reviewed Attestations Medical Necessity Statement*: Patient requires hospitalization for acute encephalopathy, acute hypoxic respiratory failure, UTI Diagnoses CHF (congestive heart failure) I50.9 Heart failure chronicity: unspecified Heart failure type: unspecified A-fib I48.91 Coagulopathy D68.9 Abnormal transaminases R74.8 YOLANDA (acute kidney injury) N17.9 Delirium R41.0 Metabolic encephalopathy G93.41 UTI (urinary tract infection) N39.0
[2024-05-28 13:45] LABS: INR 10.78 (0.8-1.2)
[2024-05-28 14:58] LABS: Alanine Aminotransferase 223 U/L (0-33); Albumin Level 3.1 g/dL (3.5-5.2); Alkaline Phosphatase 94 U/L (35-105); Aspartate Amino Transferase 277 U/L (0-32); Blood Urea Nitrogen 42 mg/dL (8-23); Calcium 8.3 mg/dL (8.5-10.5); Carbon Dioxide 25 mmol/L (22-29); Chloride 101 mmol/L (98-107); Creatinine Clr Calc Pharmacy 15.7165; Globulin 3.1 g/dL (1.3-4.6); Glucose 163 mg/dL (65-115); Osmolality Calculated 298 mOsm/kg (285-295); Sodium 137 mmol/L (136-145); Total Bilirubin 0.6 mg/dL (0.15-1.2); Total Protein 6.2 g/dL (6.6-8.7)
[2024-05-28] MEDS: phytonadione (ADULT) 10 mg/mL Ampule 1 mL SUBCUT (15:44)
[2024-05-28] MEDS: gabapentin 100 mg Capsule PO ×2 (16:36→21:43)
[2024-05-28 17:08] LABS: Glucose Point of Care 137 mg/dL (70-110)
[2024-05-28 20:47] LABS: Glucose Point of Care 223 mg/dL (70-110)
[2024-05-28 21:52] LABS: INR 11.71 (0.8-1.2)
[2024-05-29] VITALS (7 sets, daily range): BP systolic 89–126; BP diastolic 54–73; PULSE 74–101; RESP 15–22; TEMP 36.5–36.8; O2SAT 90–98
--- NOTE | 2024-05-29 01:43 | PC.NURSE ---
This nurse contacted Dr. Mandujano to advise him of patients blood pressure. Patient had dose of Furosemide due and nurse was instructed to hold dose.
[2024-05-29 05:37] LABS: Basophils % 0.3 %; Eosinophils % 0.3 %; Hematocrit 38.8 % (36-47); Lymphocytes % 10.6 %; Mean Corpuscular HGB Conc 30.9 g/dL (30-55); Mean Corpuscular Hemoglobin 27.1 pg (27-33); Mean Corpuscular Volume 87.8 fl (85-98); Mean Platelet Volume 10.4 fL (7.4-10.4); Monocytes # 1.3 10^3/uL (0.2-0.9); Monocytes % 13.4 %; Neutrophils # 7.09 10^3/uL (1.8-7.7); Neutrophils % 74.8 %; Nucleated Red Blood Cells # 0.1 /100WBC; Nucleated Red Blood Cells % 0.5 %; Platelet Count 234 10^3/cmm (157-399); Red Blood Count 4.42 10^6/uL (3.85-5.65); Red Cell Distribution Width 18.6 % (12.1-15.1); White Blood Count 9.49 10^3/uL (3.29-11.43)
[2024-05-29 06:05] LABS: Magnesium 2.3 mg/dL (1.7-2.3)
[2024-05-29 06:09] LABS: Phosphorus 3.9 mg/dL (2.5-4.5)
[2024-05-29 06:10] LABS: Anion Gap 18.9 (5-19); Blood Urea Nitrogen 43 mg/dL (8-23); Calcium 8.3 mg/dL (8.5-10.5); Carbon Dioxide 22 mmol/L (22-29); Chloride 98 mmol/L (98-107); Creatinine Clr Calc Pharmacy 13.3339; Glucose 73 mg/dL (65-115); Osmolality Calculated 287 mOsm/kg (285-295); Potassium 4.9 mmol/L (3.5-5.1); Sodium 134 mmol/L (136-145)
[2024-05-29 06:33] LABS: INR 6.91 (0.8-1.2); NT Pro B Type Natriuretic Pept 34806 pg/mL (0-450)
[2024-05-29 06:34] LABS: Glucose Point of Care 89 mg/dL (70-110)
[2024-05-29] MEDS: sennosides-docusate Tablet 1 TAB PO (09:04)
[2024-05-29] MEDS: gabapentin 100 mg Capsule PO ×4 (09:04→20:16)
[2024-05-29] MEDS: ciprofloxacin 400 MG/200 ML PREMIX 200 MG IV ×2 (09:05→20:30)
[2024-05-29 09:19] LABS: Troponin(5th) Baseline 47 ng/L (0-10)
--- NOTE | 2024-05-29 09:23 | ECG_ITS ---
[facility] Test Date: 2024-05-29 Pat Name: Vanessa Gunn Department: Room: 253 Gender: Female Credit Reporter: : 1935 Requested By: Eben Hwang Order Number: [id number] [place] MD: Espinoza Gonzalez M.D. Measurements Intervals [place] Rate: 87 P: 0 LA: 0 QRS: -78 QRSD: 182 T: 98 QT: 432 QTc: 521 Interpretive Statements ELECTRONIC VENTRICULAR PACEMAKER No previous ECG available for comparison Electronically Signed On 05-31-2024 18:06:00 CUSTOMER SERVICE REP by Espinoza Gonzalez M.D. [id number]
--- NOTE | 2024-05-29 10:00 | P.CONIM_ITS ---
<Statement entered by Espinoza Gonzalez M.D - 05/30/24 22:29> Patient was evaluated and cared for in conjunction with an advanced practice practitioner. I personally examined the patient and reviewed the chart and all pertinent data including imaging, telemetry, and laboratory results. I discussed the patient in detail with the advanced practice practitioner. Please see their note for complete consult note, results and agreed upon plan of care for the patient. GENERAL: Patient is alert HEART: Regular S1 and S2 LUNGS: Diminished air entry bilaterally EXTREMITIES: Lower extremities with 1+ edema Patient has multiorgan involvement with LV dysfunction, renal dysfunction, elevated INR. Her prognosis is poor. Discussed it with family. They understand and may proceed with comfort care in next 1-2 days Continue medical therapy for now. Thank you for involving us with care of this patient. We will continue to follow. Please call with questions. Providers/Reason For Consult 2 Consulting Physician/Specialty*: Dr Gonzalez, cardiology Reason for Consult*: systolic CHF, shortness of breath, hx of ablation for atrial fibrillation Requesting Physician: Dr Hwang Attending Physician: Eben Hwang MD Primary Care Provider: WALLACE Wilde History of Present Illness History of Present Illness Vanessa Gunn is a 88 year old female with past medical history of diabetes requiring insulin, CHF, atrial fibrillation, s/p ablation in February at [facility] in [place]. She is known to have some memory impairment. She uses oxygen at home, has a 3 L requirement currently. She is a DNR/DNI. She was diuresed due to significant fluid volume overload noted on chest x-ray with lower extremity edema. Flecainide has been held so as to not worsen elevated liver enzymes (yesterday AST 277, ALT 233). INR was elevated, she has received vitamin K, INR now 6.91. So far fluid balance is +600 mL despite Lasix 40 mg IV twice daily. Today BUN 43, creatinine 2.9-her baseline creatinine is not known. Troponin series in progress baseline: 47 EKG shows ventricular paced rhythm, rate 87 bpm. Echocardiogram yesterday shows LVEF 35%, grade 3 diastolic dysfunction, wall motion abnormalities: Mid to distal anterior, septal and apical wall akinesis suggests ischemic heart disease. Mild mitral regurgitation, severe tricuspid regurgitation, mild pulmonic regurgitation. Review of Systems 2 Const: Denies: fever(s), chills or diaphoresis Eyes: Denies: change in vision ENMT: Denies: epistaxis Card: Reports: edema; Denies: chest pain, palpitations, irregular heart rhythm, syncope or pre-syncope Resp: Reports: dyspnea GI: Denies: nausea, vomiting, hematemesis, hematochezia or melena : Denies: hematuria Arthur/Lymph: Denies: easy bruising or easy bleeding Medications/Allergies Home Medications ?Medication ?Instructions ?Recorded ?Confirmed ?Last Taken ?Type amlodipine 5 mg tablet 5 mg PO DAILY 04/18/2005/28 Unknown History cholecalciferol (vitamin D3) 50 50 mcg PO DAILY 05/28/24 Unknown History mcg (2,000 unit) capsule diltiazem HCl 120 mg 120 mg PO DAILY 04/18/2008/17 Unknown History capsule,extended release 24 hr epinephrine 0.3 mg/0.3 mL 0.3 mg IM Q10M PRN Allergic 04/18/20 05/28/24 Unknown History injection, auto-injector Reaction furosemide 20 mg tablet 10 mg PO QAM 04/18/20 Unknown History hydrocodone 7.5 mg-acetaminophen 1 tab PO Q6H PRN pain 04/18/20 05/28/24 Unknown History 325 mg tablet warfarin 2.5 mg tablet 2.5 mg PO DAILY 04/18/2008/17 Unknown History flecainide 100 mg tablet 100 mg PO BID 05/28/2405/28 Unknown History gabapentin 100 mg capsule 100 mg PO QID 05/28/2405/28 Unknown History linagliptin 5 mg tablet (Tradjenta) 5 mg PO DAILY 08/1705/28/24 Unknown History metoprolol succinate 100 mg 100 mg PO DAILY 05/28/24 0 05/28/24 Unknown History tablet,extended release 24 hr omeprazole 20 mg capsule,delayed 20 mg PO BID 05/28/24 05/28/24 Unknown History release Allergies Allergy/AdvReac Type Severity Reaction Status Date / Time Iodinated Contrast Media Allergy Severe hives Verified 05/27/24 23:00 Penicillins Allergy Severe anaphylaxis Verified 05/27/24 23:00 tolmetin (From Tolectin) Allergy Severe anaphylaxis Verified 05/27/24 23:00 acetaminophen (From Allergy Intermediate itching Verified 05/27/24 23:00 Darvocet-N) alendronate sodium (From Allergy Intermediate heartburn Verified 05/27/24 23:00 Fosamax) antioxidant multivitamin Allergy Intermediate n/v/d Verified 05/27/24 23:00 no.10 (From I-Caps) clonidine (From Catapres) Allergy Intermediate dizziness Verified 05/27/24 23:00 docosahexaenoic acid (From Allergy Intermediate n/v/d Verified 05/27/24 23:00 I-Caps) eicosapentaenoic acid (From Allergy Intermediate n/v/d Verified 05/27/24 23:00 I-Caps) lisinopril Allergy Intermediate rash Verified 05/27/24 23:00 lutein (From I-Caps) Allergy Intermediate n/v/d Verified 05/27/24 23:00 metformin (From Glucophage) Allergy Intermediate n/v/d Verified 05/27/24 23:00 morphine Allergy Intermediate rash Verified 05/27/24 23:00 omega-3 fatty acids (From Allergy Intermediate n/v/d Verified 05/27/24 23:00 I-Caps) propoxyphene (From Allergy Intermediate itching Verified 05/27/24 23:00 Darvocet-N) zeaxanthin (From I-Caps) Allergy Intermediate n/v/d Verified 05/27/24 23:00 NSAIDS (Non-Steroidal Allergy anaphylaxis Verified 05/27/24 23:00 Anti-Inflamma Current Medications Generic Name Dose Route Start Last Admin Trade Name Freq PRN Reason Stop Dose Admin Albuterol/Ipratropium 3 ml 05/28/24 00:42 05/29/24 13:46 Ipratropium-Albuterol 3 Ml Neb INHALATION 3 ml Q6H PRN Administration SHORTNESS OF BREATH Diltiazem HCl 120 mg 05/28/24 09:00 05/29/24 11:24 Diltiazem Er (24hr) 120 Mg Capsule PO Not Given DAILY NORMAN Furosemide 40 mg 05/28/24 00:45 05/29/24 12:06 Furosemide 10 Mg/Ml Sdv 10ml IVP 40 mg Q12H NORMAN Administration Gabapentin 100 mg 05/28/24 17:00 05/29/24 12:06 Gabapentin 100 Mg Capsule PO 100 mg QID NORMAN Administration Ciprofloxacin/Dextrose 400 mg in 200 mls @ 200 mls/hr 05/28/24 09:00 05/29/24 11:28 Cipro IV Infused Q12H NORMAN Infusion Protocol Insulin Human Lispro 0 unit 05/28/24 08:00 05/29/24 17:31 Insulin Lispro 100 Unit/1 Ml SUBCUT Not Given WM&BEDTIME NORMAN Protocol Senna/Docusate Sodium 1 tab 05/28/24 09:00 05/29/24 09:04 Sennosides-Docusate Tablet PO 1 tab DAILY NORMAN Administration PFSH Acute 2 PFSH: Medical History Pacemaker Diabetes CHF (congestive heart failure) A-fib Status post ablation March 2024 at [facility], status post pacemaker PAD (peripheral artery disease) Right ankle instability Social History Smoking and tobacco/nicotine status: never used tobacco/nicotine Alcohol intake: never Substance/Drug Use: never Vitals/I&O/Wt Last Vital Signs Temp 97.7 F 05/29/24 04:00 Pulse 101 H 05/29/24 13:47 Resp 16 05/29/24 13:47 BP 126/61 05/29/24 11:05 Pulse Ox 96 05/29/24 13:47 O2 Del Method Nasal Cannula 05/29/24 13:47 O2 Flow Rate 2 05/29/24 13:47 05/29/24 05/29/24 05/29/24 06:59 14:59 22:59 Intake Total 240 / 1000 320 / 320 Balance 240 / 350 320 / 320 Weight last 48 hrs Weight 188 lb 4.8 oz Weight 194 lb Physical Exam 2 Const: GENERAL APPEARANCE: cooperative and ill appearing O RIENTATION/CONSCIOUSNESS: Yes awake and Yes oriented to person Chest: COMMONS NORMALS: normal inspection of the chest and normal palpation of entire chest wall CHEST: Yes Symmetrical chest wall rise Resp: COMMON NORMALS: normal respiratory effort, No retractions and No use of accessory muscles EFFORT & INSPECTION: Yes symmetric chest movement and Yes labored AUSCULTATION: wheezes scattered wheezes and diminished lung sounds bilateral in the lower lung doss Cardio: COMMON NORMALS: regular rate, regular rhythm, S1 normal heart sound present, S2 normal heart sound present, No gallops present (Cardio), No clicks present (Cardio), No murmurs present (Cardio) and No rub (Cardio) RATE: r egular rate RHYTHM: regular rhythm HEART SOUNDS: S1 normal heart sound present and S2 normal heart sound present PERIPHERAL PULSES: radial pulses present Extremity: GENERAL: Yes edema (trace LE edema) Neuro: COMMON NORMALS: moves all extremities SENSORIUM/ORIENTATION: Yes oriented to person Urinary Catheter Management: Fitzpatrick: Cath Placed During This Visit: yes Reason for Continuing Indwelling Catheter: Acute Urinary Retention or Obstruction Urinary Catheter Date of Insertion: 05/28/24 Urinary Catheter Time of Insertion: 02:02 Data 05/29/24 04:45 05/29/24 04:45 Micro: Microbiology 05/28/24 10:01 Urine Culture - Preliminary Urine Catheterized A&P Assessment and plan (1) A-fib: (2) CHF (congestive heart failure): Qualifiers: Heart failure chronicity: unspecified Heart failure type: unspecified Qualified Code(s): I50.9 - Heart failure, unspecified (3) Abnormal transaminases: (4) YOLANDA (acute kidney injury): Plan Systolic CHF on echocardiogram yesterday, unknown if it is a new onset systolic heart failure. Records from [facility] have been requested. Will need to have a discussion with family regarding goals of care. She will be considered high risk for coronary angiogram given high INR, decreased renal function as well as volume overload, she would not likely be able to lay flat for the procedure. Agree with diuresis and continuing Lasix 40 mg twice daily. Continue diltiazem 120 mg daily for rate control. PDMP PDMP Reviewed: Not Reviewed Coding Level of Care Code Acute Code for Chg Fwd Diagnoses A-fib I48.91 CHF (congestive heart failure) I50.9 Heart failure chronicity: unspecified Heart failure type: unspecified Abnormal transaminases R74.8 YOLANDA (acute kidney injury) N17.9
--- NOTE | 2024-05-29 10:21 | ECG_ITS ---
[facility] Pat Name: Vanessa Gunn Department: Room: 253 Gender: Female Back Sizer: : 1935 Requested By: Eben Hwang Order Number: [id number] Garibay MD: Espinoza Gonzalez M.D. Measurements Intervals [place] Rate: 75 P: 0 [place]: 0 QRS: -72 QRSD: 180 T: 88 QT: 444 QTc: 498 Interpretive Statements ELECTRONIC VENTRICULAR PACEMAKER Compared to ECG 05/29/2024 09:23:52 No significant changes Electronically Signed On 05-31-2024 19:38:19 FACILITY PRACTICE SPECIALIST by Espinoza Gonzalez M.D. [id number]
[2024-05-29 10:47] LABS: Glucose Point of Care 106 mg/dL (70-110)
[2024-05-29 11:24] LABS: Troponin 5 2HR 45.19 ng/L (0-10); Troponin 5 2HR Delta -1.81 ABS# (0-10)
[2024-05-29] MEDS: FUROsemide 10 mg/mL SDV 10mL 40 MG IVP (12:06)
[2024-05-29] MEDS: ipratropium-albuterol 3 mL Neb INHALATION (13:46)
--- NOTE | 2024-05-29 14:21 | ECG_ITS ---
[facility] Test Date: 2024-05-29 Pat Name: Vanessa Gunn Department: Room: 253 Gender: Female Teacher Education Director: : 1935 Requested By: Eben Hwang Order Number: [id number] Garibay MD: Espinoza Gonzalez M.D. Measurements Intervals [place] Rate: 93 P: 0 DC: 0 QRS: -79 QRSD: 184 T: 99 QT: 437 QTc: 546 Interpretive Statements ELECTRONIC VENTRICULAR PACEMAKER Compared to ECG 05/29/2024 10:58:50 No significant changes Electronically Signed On 05-31-2024 19:37:33 ENTRY LEVEL ELECTRICIAN by Espinoza Gonzalez M.D. [id number]
--- NOTE | 2024-05-29 15:11 | PM.PN ---
Subjective Subjective: - Patient was seen this morning, she is alert to person, not to place, not to time she can follow commands she is quite upset she does not know why she is here in the hospital she does not know what is wrong with her, I had a detailed discussion with Vanessa about her heart failure or fluid overload, her UTI, her acute renal failure but she becomes easily flustered, she does follow commands she is able to smile for me, she is able to's move her upper and lower extremities, but after our multiple discussions, she seems to have short-term memory loss, I have to repeat myself to her multiple times, at times she does not recognize where she is, what the time is, why she is here after multiple lengthy explanations -I reviewed records from [facility] -I spoke to patient's son, who tells me that she is currently at a skilled nursing after being discharged from [facility] but before that she was living at home, she has had a rapid decline in the last month, in terms of her ambulation, she needs a walker but he tells me that she is more bedbound, they have noticed a decline in her cognitive level of functioning, Vitals/I&O/Wt Last Vital Signs Temp 97.7 F 05/29/24 04:00 Pulse 101 H 05/29/24 13:47 Resp 16 05/29/24 13:47 BP 126/61 05/29/24 11:05 Pulse Ox 96 05/29/24 13:47 O2 Del Method Nasal Cannula 05/29/24 13:47 O2 Flow Rate 2 05/29/24 13:47 05/29/24 05/29/24 05/29/24 06:59 14:59 22:59 Intake Total 240 / 1000 320 / 320 Balance 240 / 350 320 / 320 Weight last 48 hrs Weight 85.411 kg Weight 87.997 kg Physical Exam Const: COMMON NORMALS: no acute distress ORIENTATION/CONSCIOUSNESS: Yes awake, Yes oriented to person and Yes confused; not oriented to place and not oriented to time Eye: COMMON NORMALS: Equal, round and reactive pupils present PUPIL: Yes Equal, round and reactive pupils present Resp: COMMON NORMALS: normal respiratory effort, No retractions and No use of accessory muscles AUSCULTATION: crackles Cardio: COMMON NORMALS: regular rate, regular rhythm, S1 normal heart sound present and S2 normal heart sound present RATE: regular rate RHYTHM: regular rhythm HEART SOUNDS: S1 normal heart sound present and S2 normal heart sound present GI: COMMON NORMALS: Normal to inspection, nondistended, normoactive bowel sounds present, Soft to palpation and non-tender PALPATION: Yes Soft to palpation Extremity: NARRATIVE EXTREMITY EXAM: 1+ edema Neuro: SENSORIUM/ORIENTATION: Yes oriented to person, No oriented to place and No oriented to time Psych: COMMON NORMALS: mental status grossly normal Urinary Catheter Management: Fitzpatrick: Cath Placed During This Visit: yes Reason for Continuing Indwelling Catheter: Acute Urinary Retention or Obstruction Urinary Catheter Date of Insertion: 05/28/24 Urinary Catheter Time of Insertion: 02:02 Data 05/29/24 04:45 05/29/24 04:45 Micro: Microbiology 05/28/24 10:01 Urine Culture - Preliminary Urine Catheterized A&P Assessment and plan (1) CHF (congestive heart failure): Qualifiers: Heart failure chronicity: unspecified Heart failure type: unspecified Qualified Code(s): I50.9 - Heart failure, unspecified (2) A-fib: (3) Coagulopathy: (4) Abnormal transaminases: (5) YOLANDA (acute kidney injury): (6) Delirium: (7) Metabolic encephalopathy: (8) UTI (urinary tract infection): Plan Acute encephalopathy, metabolic Multifactorial Possible UTI Coagulopathy Abnormal transaminases Request CT head without contrast no acute findings No fever, no nuchal rigidity No active hemodynamic instability Check TSH, B12 within normal limits Procalcitonin within normal limits, CRP 60.5 Ammonia 24 UTI, ciprofloxacin Acute hypoxic respiratory failure -CT chest showing cardiomegaly, effusions moderate right and small left, soft tissue edema -Does use 2 L at baseline -Secondary to CHF exacerbation -Has had multiple hospitalization at [facility] for CHF exacerbation -Her EF at [facility] is 37%, with global hypokinesis -IV diuresis as below CHF exacerbation CONCLUSIONS Moderately increased left ventricular cavity size. Severely decreased left ventricular systolic function. Left ventricular ejection fraction is estimated at 35 %. Mid to distal anterioor, septal amd apical wall akinesis suggestive of ischemic heart disease .Grade III/IV diastolic dysfunction (restrictive filling pattern), severely elevated filling pressures. Severely increased right atrial size. Moderately increased left atrial size. Severe tricuspid valve regurgitation. There is no pericardial effusion. Right atrial pressure is around 5 mm of mercury. Patient clinically has anasarca presentation Lasix [address] Fitzpatrick catheter for accurate urine output measurement YOLANDA: Creatinine up to 2.9 -Baseline creatinine is 0.9-1.1 -Monitor urine output -Monitor creatinine, monitor potassium Transaminitis -Potentially associate with flecainide - CT abdomen no acute findings A-fib: Status post AV mark ablation March 2024 at [facility] -Sick sinus syndrome status post pacemaker -Takes flecainide, Coumadin, currently on hold Hold flecainide, flecainide can also cause abnormal transaminases Hold Coumadin Pulmonary hypertension Supratherapeutic INR: No active bleed Monitor hemoglobin Blood pressure stable Hold Coumadin No active sign of bleed Recheck INR this afternoon Type 2 diabetes mellitus, low-dose sliding scale Physical deconditioning, protein calorie malnutrition Nutrition, dysphagia level 4 diet, mildly thickened, aspiration precautions, consult speech therapy DNR/DNI Supratherapeutic INR Dysphagia level 4 diet Plan for today, IV diuresis, IV antibiotics, monitor creatinine monitor urine output, given echocardiogram findings consult cardiology, spoke to patient's family PDMP PDMP Reviewed: Not Reviewed Attestations Medical Necessity Statement*: Patient requires hospitalization for acute hypoxic respiratory failure secondary to CHF, acute encephalopathy, UTI, pulm hypertension, physical deconditioning Diagnoses CHF (congestive heart failure) I50.9 Heart failure chronicity: unspecified Heart failure type: unspecified A-fib I48.91 Coagulopathy D68.9 Abnormal transaminases R74.8 YOLANDA (acute kidney injury) N17.9 Delirium R41.0 Metabolic encephalopathy G93.41 UTI (urinary tract infection) N39.0
[2024-05-29] MEDS: metOLazone 5 MG Tablet PO (15:50)
[2024-05-29 16:36] LABS: Glucose Point of Care 94 mg/dL (70-110)
[2024-05-29 18:07] LABS: Troponin 5 6HR 48.13 ng/L (0-10); Troponin 5 6HR Delta 1.13 ng/L (0-12)
[2024-05-29] MEDS: ondansetron 2 mg/ML SDV 2 mL 4 MG IVP (19:46)
[2024-05-29] MEDS: HYDROcodone-acetaminophen 7.5-325 mg Tablet 1 TAB PO (20:16)
[2024-05-29 21:17] LABS: Glucose Point of Care 146 mg/dL (70-110)
[2024-05-30] VITALS: BP 87/57; PULSE 109; RESP 20; TEMP 36.5; O2SAT 95
[2024-05-30] MEDS: ondansetron 2 mg/ML SDV 2 mL 4 MG IVP (02:37)
[2024-05-30 03:46] VITALS: BP 82/52; PULSE 103; RESP 22; TEMP 36.7; O2SAT 94
[2024-05-30] MEDS: sodium chloride 0.9% 250 ML IV (04:07)
[2024-05-30 05:06] LABS: Basophils % 0.1 %; Eosinophils % 0.2 %; Hematocrit 36.8 % (36-47); Lymphocytes # 0.5 10^3/uL (0.8-4.8); Lymphocytes % 3.7 %; Mean Corpuscular HGB Conc 30.7 g/dL (30-55); Mean Corpuscular Hemoglobin 27.8 pg (27-33); Mean Corpuscular Volume 90.4 fl (85-98); Mean Platelet Volume 10.7 fL (7.4-10.4); Monocytes # 1.2 10^3/uL (0.2-0.9); Monocytes % 8.7 %; Neutrophils # 11.52 10^3/uL (1.8-7.7); Nucleated Red Blood Cells # 0.1 /100WBC; Nucleated Red Blood Cells % 0.7 %; Platelet Count 99 10^3/cmm (157-399); Red Blood Count 4.07 10^6/uL (3.85-5.65); Red Cell Distribution Width 19.1 % (12.1-15.1); White Blood Count 13.39 10^3/uL (3.29-11.43)
[2024-05-30 05:31] LABS: Phosphorus 5.9 mg/dL (2.5-4.5)
[2024-05-30 05:37] VITALS: BP 92/63
[2024-05-30 05:39] LABS: Blood Urea Nitrogen 55 mg/dL (8-23); Calcium 8.5 mg/dL (8.5-10.5); Carbon Dioxide 14 mmol/L (22-29); Chloride 92 mmol/L (98-107); Creatinine Clr Calc Pharmacy 9.7682; Glucose 74 mg/dL (65-115); Osmolality Calculated 284 mOsm/kg (285-295); Sodium 130 mmol/L (136-145)
[2024-05-30 06:17] LABS: Glucose Point of Care 77 mg/dL (70-110)
[2024-05-30 06:19] LABS: NT Pro B Type Natriuretic Pept 50597 pg/mL (0-450)
[2024-05-30 06:20] LABS: Anion Gap 30.5 (5-19)
[2024-05-30 06:22] LABS: Potassium 6.5 mmol/L (3.5-5.1)
[2024-05-30 06:27] LABS: Slide Review Slide Review Perform
[2024-05-30 06:54] LABS: INR 6.29 (0.8-1.2)
[2024-05-30] MEDS: calcium gluconate 0.9% NaCL 1 GM/50 ML PREMIX IV (07:13)
[2024-05-30] MEDS: dextrose 10% 250 ML 1000 ML IV (07:14)
[2024-05-30 07:37] VITALS: BP 113/77; PULSE 81; RESP 19; TEMP 36.4; O2SAT 92
[2024-05-30 08:06] VITALS: PULSE 101; RESP 16; O2SAT 96
[2024-05-30] MEDS: amiodarone 150 MG/100 ML PREMIX 400 MG IV (08:13)
[2024-05-30] MEDS: HYDROMORPHONE HCL 0.5 MG/0.5 ML INJ 0.2 MG IVP (08:38)
[2024-05-30 08:43] LABS: Glucose Point of Care 153 mg/dL (70-110)
--- NOTE | 2024-05-30 08:53 | PC.NURSE ---
Dr. Hwang notified of pt passing. Time of called at [phone]
--- NOTE | 2024-05-30 09:04 | P.DS_ITS ---
Discharge Providers Date of Admission: 05/28/24 01:35 Date of Discharge: May 30, 2024 Attending Provider at Admission: Radha Mandujano MD Attending Provider at Discharge: Eben Hwang MD Primary Care Provider: WALLACE Wilde Diagnoses at Discharge Discharge Diagnosis (1) A-fib: Status: Acute Permanent problem details: Status post ablation March 2024 at [facility], status post pacemaker (2) CHF (congestive heart failure): Status: Acute Qualifiers: Heart failure chronicity: unspecified Heart failure type: unspecified Qualified Code(s): I50.9 - Heart failure, unspecified (3) Abnormal transaminases: Status: Acute (4) YOLANDA (acute kidney injury): Status: Acute Reason for Visit Reason for Visit: sob Physical Exam Urinary Catheter Management: Fitzpatrick: Cath Placed During This Visit: yes Reason for Continuing Indwelling Catheter: Other Urinary Catheter Date of Insertion: 05/28/24 Urinary Catheter Time of Insertion: 02:02 Discharge Data Studies Completed and Pending Completed Studies During Hospitalization Category Date Time Status CT chest abdomen pelvis [[place] [id number] Cat Scan 05/28/24 0 0:09 Completed ] Stat CT head wo con* [id number] Routine Cat Scan 05/28/24 01:13 Completed XR chest 1V portable [id number] Stat Exams 05/27/24 22:59 Completed CV. echo complete* [id number] Routine Ultrasound 05/28/24 00:43 Completed Pending at discharge Category Date Time Status Basic Metabolic Panel AM LABS Lab 05/31/24 04:00 Ordered Complete Blood Count w/Auto AM LABS Lab 05/31/24 04:00 Ordered NT Pro B Type Natriuretic Pept QAM Lab 05/31/24 06:00 Ordered Phosphorus AM LABS Lab 05/31/24 04:00 Ordered Urine Culture Stat Lab 05/28/24 10:01 Results Radiology Impressions Chest X-Ray 05/27/24 22:59 IMPRESSION: 1. Cardiomegaly with central pulmonary vascular congestion. Mild interstitial prominence may reflect mild pulmonary edema. 2. Mild bibasilar opacities could represent atelectasis versus infiltrate. Chest/Abdomen/Pelvis CT 05/28/24 00:09 IMPRESSION: Cardiomegaly. Moderate right and small left effusion. IMPRESSION: Cardiomegaly. Effusions and soft tissue edema, suggesting some degree of cardiac failure. Additional chronic findings as above. COMMENTS: Consistent with the [employer]'s Incidental Findings Committee white paper (J Am Christopher Radiol 2017): For any incidental adrenal lesion greater than or equal to 1 cm but less than or equal to 4 cm classified in this report as benign, likely benign, or containing fat (including classification as an adenoma or myelolipoma), no follow-up imaging is recommended per consensus recommendations based on imaging criteria. Further lab evaluation could be pursued if warranted based on clinical findings. Head CT 05/28/24 01:13 IMPRESSION: Advanced chronic ischemic change and atrophy. No acute intracranial abnormality. Laboratory Results WBC 13.39 10^3/uL (3.29-11.43) H 05/30/24 04:28 RBC 4.07 10^6/uL (3.85-5.65) 05/30/24 04:28 Hgb 11.30 g/dL (11.27-16.99) 05/30/24 04:28 Hct 36.8 % (36-47) 05/30/24 04:28 MCV 90.4 fl (85-98) 05/30/24 04:28 MCH 27.8 pg (27-33) 05/30/24 04:28 MCHC 30.7 g/dL (30-55) 05/30/24 04:28 RDW 19.1 % (12.1-15.1) H 05/30/24 04:28 Plt Count 99 10^3/cmm (157-399) L D 05/30/24 04:28 MPV 10.7 fL (7.4-10.4) H 05/30/24 04:28 Neut % (Auto) 86.0 % 05/30/24 04:28 Lymph % (Auto) 3.7 % 05/30/24 04:28 [place] % (Auto) 8.7 % 05/30/24 04:28 Eos % (Auto) 0.2 % 05/30/24 04:28 Baso % (Auto) 0.1 % 05/30/24 04:28 Neut # (Auto) 11.52 10^3/uL (1.8-7.7) H 05/30/24 04:28 Lymph # (Auto) 0.5 10^3/uL (0.8-4.8) L 05/30/24 04:28 [place] # (Auto) 1.2 10^3/uL (0.2-0.9) H 05/30/24 04:28 Eos # (Auto) 0.0 10^3/uL (0.0-0.8) 05/30/24 04:28 Baso # (Auto) 0.0 10^3/uL (0.0-0.1) 05/30/24 04:28 Nucleated RBC % (auto) 0.7 % 05/30/24 04:28 Nucleated RBCs # 0.1 /100WBC 05/30/24 04:28 PT 58.50 SECONDS (12.1-14.9) H 05/30/24 05:26 INR 6.29 (0.8-1.2) H* 05/30/24 05:26 Sodium 130 mmol/L (136-145) L 05/30/24 04:28 Potassium 6.5 mmol/L (3.5-5.1) H* D 05/30/24 04:28 Chloride 92 mmol/L (98-107) L 05/30/24 04:28 Carbon Dioxide 14 mmol/L (22-29) L 05/30/24 04:28 Anion Gap 30.5 (5-19) H 05/30/24 04:28 BUN 55 mg/dL (8-23) H 05/30/24 04:28 Creatinine 4.0 mg/dL (0.5-0.9) H 05/30/24 04:28 GFR Calculation Not Reportable 05/30/24 04:28 Glucose 74 mg/dL (65-115) 05/30/24 04:28 POC Glucose 153 mg/dL (70-110) H 05/30/24 08:40 Estimat Average Glucose 143 05/28/24 02:10 Hemoglobin A1c 6.6 % (4.0-6.0) H 05/28/24 02:10 Calculated Osmolality 284 mOsm/kg (285-295) L 05/30/24 04:28 Lactic Acid 2.5 mmol/L (0.5-2.2) H 05/27/24 23:14 Lactic Acid (Sepsis) 2.5 mmol/L (0.5-2.2) H 05/28/24 02:10 Calcium 8.5 mg/dL (8.5-10.5) 05/30/24 04:28 Phosphorus 5.9 mg/dL (2.5-4.5) H D 05/30/24 04:28 Magnesium 2.3 mg/dL (1.7-2.3) 05/29/24 04:45 Total Bilirubin 0.6 mg/dL (0.15-1.2) 05/28/24 14:33 AST 277 U/L (0-32) H 05/28/24 14:33 ALT 223 U/L (0-33) H 05/28/24 14:33 Alkaline Phosphatase 94 U/L (35-105) 05/28/24 14:33 Ammonia 24 umol/L (11-51) 05/28/24 02:10 Troponin T Baseline 47 ng/L (0-10) H 05/29/24 08:38 Troponin T 120 Minute 45.19 ng/L (0-10) H 05/29/24 10:55 Delta Troponin T -1.81 ABS# (0-10) L 05/29/24 10:55 Troponin T Hi Sens 6Hr 48.13 ng/L (0-10) H 05/29/24 17:26 Troponin T Hi Sens 6Hr Delta 1.13 ng/L (0-12) 05/29/24 17:26 C-Reactive Protein 62.5 mg/L (0.0-4.9) H 05/28/24 02:10 NT-Pro-B Natriuret Pep 83198 pg/mL (0-450) H 05/30/24 04:28 Total Protein 6.2 g/dL (6.6-8.7) L 05/28/24 14:33 Albumin 3.1 g/dL (3.5-5.2) L 05/28/24 14:33 Globulin 3.1 g/dL (1.3-4.6) 05/28/24 14:33 Vitamin B12 1211 pg/mL (232-1245) 05/28/24 02:10 Procalcitonin 0.25 ng/mL (0-0.5) 05/28/24 02:10 TSH 2.71 uIU/mL (0.27-4.20) 05/28/24 02:10 Urine Color Dark yellow (Yellow) A 05/28/24 00:38 Urine Appearance Clear (CLEAR) 05/28/24 00:38 Urine pH 5.0 (5-7) 05/28/24 00:38 Ur Specific [place] 1.020 (1.005-1.030) 05/28/24 00:38 Urine Protein 2+ (Negative) A 05/28/24 00:38 Urine Glucose (UA) Negative (Normal) 05/28/24 00:38 Urine Ketones Trace (Negative) 05/28/24 00:38 Urine Blood Negative (Negative) 05/28/24 00:38 Urine Nitrate Negative (Negative) 05/28/24 00:38 Urine Bilirubin 1+ (Negative) H 05/28/24 00:38 Urine Urobilinogen 1.0 mg/dL (Negative) 05/28/24 00:38 Ur Leukocyte Esterase Trace (Negative) A 05/28/24 00:38 Urine RBC None /hpf (0-2) 05/28/24 00:38 Urine WBC 0-4 /hpf (0-5) H 05/28/24 00:38 Ur Squamous Epith Cells 0-4 /hpf (0-5) H 05/28/24 00:38 Amorphous Sediment Not Reportable 05/28/24 00:38 Urine Bacteria Trace /hpf (NONE) 05/28/24 00:38 Hyaline Casts 5-10 /lpf H 05/28/24 00:38 Urine Mucus 2+ /hpf 05/28/24 00:38 Influenza A (PCR) Negative (Negative) 05/28/24 00:12 Influenza Type B (PCR) Negative (Negative) 05/28/24 00:12 RSV (PCR) Negative (Negative) 05/28/24 00:12 SARS-CoV-2 (PCR) Negative (Negative) 05/28/24 00:12 Vitals Last Vital Signs Temp 97.6 F 05/30/24 07:37 Pulse 101 H 05/30/24 08:06 Resp 16 05/30/24 08:06 BP 113/77 05/30/24 07:37 Pulse Ox 96 05/30/24 08:06 O2 Del Method Nasal Cannula 05/30/24 08:06 O2 Flow Rate 2 05/30/24 08:06 Discharge Plan Discharge Patient Disposition: Home Condition: Stable Prescriptions: No Action hydrocodone-acetaminophen 7.5-325 mg tablet 1 tab PO Q6H PRN (Reason: pain) amlodipine 5 mg tablet 5 mg PO DAILY diltiazem HCl 120 mg capsule,extended release 24hr 120 mg PO DAILY epinephrine 0.3 mg/0.3 mL auto-injector 0.3 mg IM Q10M MDD 3 PRN (Reason: Allergic Reaction) Rx Instructions: for 2 doses furosemide 20 mg tablet 10 mg PO QAM warfarin 2.5 mg tablet 2.5 mg PO DAILY cholecalciferol (vitamin D3) 50 mcg (2,000 unit) capsule 50 mcg PO DAILY metoprolol succinate 100 mg tablet extended release 24 hr 100 mg PO DAILY flecainide 100 mg tablet 100 mg PO BID omeprazole 20 mg capsule,delayed release(DR/EC) 20 mg PO BID gabapentin 100 mg capsule 100 mg PO QID Tradjenta 5 mg tablet 5 mg PO DAILY Referrals: Lynch,Sheri, [employer] [Primary Care Provider] - Patient Instructions: Opioid Safety Coding Level of Care Code [facility] Diagn[facility] A-fib I48.91 CHF (congestive heart failure) I50.9 Heart failure chronicity: unspecified Heart failure type: unspecified Abnormal transaminases R74.8 YOLANDA (acute kidney injury) N17.9
--- NOTE | 2024-05-30 09:04 | PM.PN ---
Subjective Subjective: - Patient's potassium was 6.5 this morning, she was given 1 g calcium gluconate, insulin, D50, 10 units insulin -Patient was seen this morning, her granddaughter is at bedside -She is alert to person, not to place, not to time, she does not follow commands -Has encephalopathy, -She keeps complaining of pain, but is not able to specify where she is hurting, but does report feeling short of breath -Currently she is on 2 L, blood pressures are 90s over 60s, heart rates in the 90s, normal sinus rhythm, she appears in mild to moderate respiratory distress with nasal flaring, intercostal retractions suprasternal retractions -Discussed with granddaughter at bedside patient's acute respiratory failure likely secondary to systolic CHF exacerbation, with ischemic cardiomyopathy discussed echocardiogram findings, multiple wall motion abnormalities, and now her acute renal failure -Discussed goals of care, patient is DNR/DNI, aggressive interventions -Patient was uncomfortable in mild to moderate respiratory stress, order given for 0.5 mg IV push Dilaudid -I then spoke to patient's son Adi -I spoke to Adi about Vanessa's critical status -Discussed that Vanessa situation is critical, her prognosis is poor -Discussed my discussion with cardiology, given her renal failure, her heart failure, she is a high risk of core morbidities, morbidity and mortality, for any coronary intervention -She would have a high likelihood of worsening respiratory failure, requiring intubation, high likelihood of requiring dialysis -Discussed given her respiratory failure, her creatinine up to 4 now with evidence of acute renal failure with lackluster urine output -Discussed her overall goals of care given her heart failure, her echocardiogram evidence of multiple wall motion abnormalities, concern for ischemic cardiomyopathy, or supratherapeutic INR now acute renal failure, acute encephalopathy, acute respiratory failure overall given her age, and now acutely with concerns for cardiogenic shock multiple risk factors her prognosis is poor, status is critical -Options I discussed were continuing medical interventions, considering moving her down to ICU and intubation, starting dialysis considering coronary angiogram if she could be more stabilized but this option would likely carry significant morbidity and mortality, prolonged intubation require significant life support, dialysis ? The other option I discussed was comfort care, easing Vanessa's pain, suffering allowing her to be comfortable, allowing her to pass away comfortably, and aligning with her DNR/DNI -After discussing risk and benefits of all options, he voiced understanding, all questions answered -Patient's son tells me that he does not want Vanessa to suffer, he wants to try to make it to the hospital to say his goodbyes to her, but above all does not want her to be in pain or to suffer. Does not want aggressive interventions for her, such as intubation, dialysis, further aggressive interventions -Patient is in [place] and tells me that he is can take about [address] to [facility], and he is trying to come here urgently, discussed in the meantime if her condition does start to deteriorate if he is okay with pain medication to ease her pain and ease her suffering, and he is in agreement, and we will keep him closely updated but recommended to urgently come to the hospital, he understands Vanessa's condition is terminal -Patient's monitors are showing evidence of V. tach, she she does have a pulse, will give her an amiodarone bolus, she is not taking pills -Concerns for cardiogenic shock, patient is not taking pills, continue to conservatively monitor as patient is DNR/DNI family does not want to have aggressive interventions -Patient's respiratory status worsened, respiratory failure worsen, Ativan order was placed for pain and agitation, -At 8:53 AM patient went into asystole, time of 8:53 AM -I saw patient, no heart sounds heard, no visible chest rise, pupils are fixed dilated, granddaughter is at bedside -I spoke to patient's son over the phone, who is making his way to the hospital, discussed Vanessa's passing, likely from acute respiratory failure, ischemic cardiomyopathy, acute systolic CHF, cardiogenic shock, acute renal failure he voiced understanding, all questions answered -I also had a family meeting with patient's son when he came to the hospital, family voiced understanding, all questions answered Vitals/I&O/Wt Last Vital Signs Temp 97.6 F 05/30/24 07:37 Pulse 101 H 05/30/24 08:06 Resp 16 05/30/24 08:06 BP 113/77 05/30/24 07:37 Pulse Ox 96 05/30/24 08:06 O2 Del Method Nasal Cannula 05/30/24 08:06 O2 Flow Rate 2 05/30/24 08:06 05/29/24 05/30/24 05/30/24 22:59 06:59 14:59 Intake Total 200 / 520 250 / 770 7.5 / 7.5 Output Total 250 / 250 0 / 250 Balance -50 / 270 250 / 520 7.5 / 7.5 Weight last 48 hrs Weight 87.09 kg Weight 85.411 kg Physical Exam Const: COMMON NORMALS: no acute distress EXAM LIMITATIONS: altered mental status GENERAL APPEARANCE: lethargic ORIENTATION/CONSCIOUSNESS: Yes awake, Yes oriented to time, Yes confused and Yes lethargic; not oriented to person and not oriented to place Neck/C-Spine: COMMON NORMALS: no JVD Resp: AUSCULTATION: crackles and wheezes Cardio: COMMON NORMALS: no JVD, regular rate, regular rhythm, S1 normal heart sound present and S2 normal heart sound present RATE: regular rate RHYTHM: regular rhythm HEART SOUNDS: S1 normal heart sound present and S2 normal heart sound present OTHER: Nasal flaring, tachypnea, suprasternal retractions, intercostal retractions, crackles and wheezing in all lung doss GI: COMMON NORMALS: Normal to inspection, nondistended, normoactive bowel sounds present and Soft to palpation PALPATION: Yes Soft to palpation Extremity: NARRATIVE EXTREMITY EXAM: Anasarca, 2+ pitting edema Neuro: SENSORIUM/ORIENTATION: No oriented to person, No oriented to place, Yes oriented to time and Yes lethargic Urinary Catheter Management: Fitzpatrick: Cath Placed During This Visit: yes Reason for Continuing Indwelling Catheter: Other Urinary Catheter Date of Insertion: 05/28/24 Urinary Catheter Time of Insertion: 02:02 Sepsis: Is patient septic: No Focused sepsis exam performed: Yes Focused sepsis exam: DP PT pulses diminished, cap refill Data 05/30/24 04:28 05/30/24 04:28 Micro: Microbiology 05/28/24 10:01 Urine Culture - Preliminary Urine Catheterized A&P Assessment and plan (1) CHF (congestive heart failure): Qualifiers: Heart failure chronicity: unspecified Heart failure type: unspecified Qualified Code(s): I50.9 - Heart failure, unspecified (2) A-fib: (3) Coagulopathy: (4) Abnormal transaminases: (5) YOLANDA (acute kidney injury): (6) Delirium: (7) Metabolic encephalopathy: (8) UTI (urinary tract infection): Plan Acute encephalopathy, metabolic Multifactorial Possible UTI Coagulopathy Abnormal transaminases Request CT head without contrast no acute findings No fever, no nuchal rigidity No active hemodynamic instability Check TSH, B12 within normal limits Procalcitonin within normal limits, CRP 60.5 Ammonia 24 UTI, ciprofloxacin Cardiogenic shock Acute hypoxic respiratory failure, cardiogenic shock, ischemic cardiomyopathy -CT chest showing cardiomegaly, effusions moderate right and small left, soft tissue edema -Does use 2 L at baseline -Secondary to CHF exacerbation -Has had multiple hospitalization at [facility] for CHF exacerbation -Her EF at [facility] is 37%, with global hypokinesis -IV diuresis as below CHF exacerbation, ischemic cardiomyopathy CONCLUSIONS Moderately increased left ventricular cavity size. Severely decreased left ventricular systolic function. Left ventricular ejection fraction is estimated at 35 %. Mid to distal anterioor, septal amd apical wall akinesis suggestive of ischemic heart disease .Grade III/IV diastolic dysfunction (restrictive filling pattern), severely elevated filling pressures. Severely increased right atrial size. Moderately increased left atrial size. Severe tricuspid valve regurgitation. There is no pericardial effusion. Right atrial pressure is around 5 mm of mercury. Patient clinically has anasarca presentation Lasix [address] Fitzpatrick catheter for accurate urine output measurement YOLANDA: Creatinine up to 4.0 -Baseline creatinine is 0.9-1.1 -Monitor urine output -Monitor creatinine, monitor potassium Transaminitis -Potentially associate with flecainide - CT abdomen no acute findings A-fib: Status post AV mark ablation March 2024 at [facility] -Sick sinus syndrome status post pacemaker -Takes flecainide, Coumadin, currently on hold Hold flecainide, flecainide can also cause abnormal transaminases Hold Coumadin Pulmonary hypertension Supratherapeutic INR: No active bleed Monitor hemoglobin Blood pressure stable Hold Coumadin No active sign of bleed Recheck INR this afternoon Type 2 diabetes mellitus, low-dose sliding scale Physical deconditioning, protein calorie malnutrition Nutrition, dysphagia level 4 diet, mildly thickened, aspiration precautions, consult speech therapy DNR/DNI Supratherapeutic INR Dysphagia level 4 diet Plan for today, family meeting, goals of care discussion, acute respiratory failure, cardiogenic shock, acute renal failure, PDMP PDMP Reviewed: Not Reviewed Attestations Medical Necessity Statement*: Patient requires hospitalization for acute renal failure, cardiogenic shock, acute respiratory failure, ischemic cardiomyopathy, time of 8:53 AM Diagnoses CHF (congestive heart failure) I50.9 Heart failure chronicity: unspecified Heart failure type: unspecified A-fib I48.91 Coagulopathy D68.9 Abnormal transaminases R74.8 YOLANDA (acute kidney injury) N17.9 Delirium R41.0 Metabolic encephalopathy G93.41 UTI (urinary tract infection) N39.0
--- NOTE | 2024-05-30 09:32 | PC.NURSE ---
[facility] notified [facility] of patient passing @0915. Full clearance from [facility] and saving site. Reference #[id number]
--- NOTE | 2024-05-30 12:56 | P.DES_ITS ---
Discharge Providers DDS Date of Admission: 05/28/24 01:35 Date Summary Completed: 05/30/24 Attending Provider at Admission: Radha Mandujano MD Time of : 08:53 Attending Provider at Discharge: Eben Hwang MD Primary Care Provider: WALLACE Wilde Diagnoses Hospital Diagnoses (1) A-fib: Permanent Problem Comments: Status post ablation March 2024 at [facility], status post pacemaker (2) CHF (congestive heart failure): Qualifiers: Heart failure chronicity: unspecified Heart failure type: unspecified Qualified Code(s): I50.9 - Heart failure, unspecified (3) Abnormal transaminases: (4) YOLANDA (acute kidney injury): Reason for Visit Reason for Visit sob Summary Date and Time of Date of : 05/30/24 Time of : 08:53 Summary Summary: this is a 88-year-old female with a past medical history of insulin-dependent diabetes, CHF, atrial fibrillation, chronic anticoagulation recent history of cardiac ablation for atrial fibrillation, pulmonary hypertension, recent history of hospitalizations for CHF exacerbations who presents [facility] due to generalized weakness, confusion, lower extreme edema, shortness of breath Patient was admitted to [facility] for acute metabolic encephalopathy, with acute hypoxic respiratory failure secondary to ischemic cardiomyopathy, systolic CHF, with acute kidney injury, UTI, transaminitis, supratherapeutic INR, DNR/DNI. She was admitted for medical management, cardiology was consulted, unfortunately patient's condition worsened during her hospitalization, respiratory failure worsened, persistent encephalopathy, acute renal function deteriorated. The morning of 05/30/2024 patient developed acute hypoxic respiratory failure secondary ischemic cardiomyopathy, systolic CHF, acute renal failure, acute encephalopathy, and cardiogenic shock, and hyperkalemia. After detailed discussion with goals of care, with patient's son, patient remains a DNR/DNI, patient's family want to emphasize comfort and for us to ease her pain and ease her suffering; Patient's son wanted to be at bedside for Vanessa's passing, but unfortunately at 8:53 AM 05/30/2024, before Adi could make it to the hospital. Patient's son Adi was informed, and I had a family meeting with Adi. Additional Data Confirmation of as documented by pronouncing clinician: no pulse, no respirations, no heart sounds and pupils fixed and dilated Family: at bedside Additional persons at bedside: nursing staff Attending/PCP notified?: I am attending Was code activated?: No Autopsy requested?: No Advance directives?: No Hospice patient?: No Discharge Plan Discharge Patient Disposition: Home Condition: Stable Prescriptions: No Action hydrocodone-acetaminophen 7.5-325 mg tablet 1 tab PO Q6H PRN (Reason: pain) amlodipine 5 mg tablet 5 mg PO DAILY diltiazem HCl 120 mg capsule,extended release 24hr 120 mg PO DAILY epinephrine 0.3 mg/0.3 mL auto-injector 0.3 mg IM Q10M MDD 3 PRN (Reason: Allergic Reaction) Rx Instructions: for 2 doses furosemide 20 mg tablet 10 mg PO QAM warfarin 2.5 mg tablet 2.5 mg PO DAILY cholecalciferol (vitamin D3) 50 mcg (2,000 unit) capsule 50 mcg PO DAILY metoprolol succinate 100 mg tablet extended release 24 hr 100 mg PO DAILY flecainide 100 mg tablet 100 mg PO BID omeprazole 20 mg capsule,delayed release(DR/EC) 20 mg PO BID gabapentin 100 mg capsule 100 mg PO QID Tradjenta 5 mg tablet 5 mg PO DAILY Discharge Orders: Discharge Order (Routine); Ordered 05/30/24 Ordered By: Eben Hwang Referrals: Sheri Lynch FNP [Primary Care Provider] - Patient Instructions: Opioid Safety DS Attestations Time Spent in /Discharge Care*: greater than 30 min Quality - AMI: AMI present?: No Quality - Stroke: CVA present?: No Quality - VTE: VTE present?: No Deep Vein Thrombosis/Pulmonary Embolism Present on Admission: No Coding Level of Care Code 91007 Total time (in minutes) for Discharge: 45 Diagnoses A-fib I48.91 CHF (congestive heart failure) I50.9 Heart failure chronicity: unspecified Heart failure type: unspecified Abnormal transaminases R74.8 YOLANDA (acute kidney injury) N17.9
== END 2024-05-30 13:00 | disposition expired | DRG 291 ==
LOC: ER 05-28 02:28 → MEDSURG 05-28 03:51
PROVIDERS: Admitting Provider Internal Medicine; Emergency Provider Emergency Medicine; PCP Nurse Practitioner Family; Visit Provider Family Medicine
DX: I50.23 Acute on chronic systolic (congestive) heart failure (principal); G93.41 Metabolic encephalopathy; J96.01 Acute respiratory failure with hypoxia; D68.9 Coagulation defect, unspecified; N17.9 Acute kidney failure, unspecified; N39.0 Urinary tract infection, site not specified; E46 Unspecified protein-calorie malnutrition; I48.91 Unspecified atrial fibrillation; R74.8 Abnormal levels of other serum enzymes; R41.0 Disorientation, unspecified; R33.9 Retention of urine, unspecified; R62.7 Adult failure to thrive; Z66 Do not resuscitate; I25.5 Ischemic cardiomyopathy; R57.0 Cardiogenic shock; E87.5 Hyperkalemia; E11.51 Type 2 diabetes mellitus with diabetic peripheral angiopathy without gangrene; Z79.01 Long term (current) use of anticoagulants; Z79.899 Other long term (current) drug therapy; Z79.4 Long term (current) use of insulin; Z88.0 Allergy status to penicillin; Z88.8 Allergy status to other drugs, medicaments and biological substances; Z88.5 Allergy status to narcotic agent; Z91.041 Radiographic dye allergy status; Z95.0 Presence of cardiac pacemaker; Z99.81 Dependence on supplemental oxygen; Z11.52 Encounter for screening for COVID-19; R74.01 Elevation of levels of liver transaminase levels; Z68.35 Body mass index [BMI] 35.0-35.9, adult
CPT/HCPCS: 36415; 36416; 51702; 70450; 71045; 71250; 74176; 80048; 80053; 81001; 82140; 82607; 82962; 83036; 83605; 83735; 83880; 84100; 84145; 84443; 84484; 85025; 85610; 86140; 87086; 87637; 92507; 92523; 92526; 92610; 93005; 93306; 94640; 94664; 96372; 97110; 97162; 97530; 99285; J0283; J0612; J0744; J1171; J1815; J1940; J2405; J3430; J7050; J7799; J9999